=== PATIENT | female | born 1960 | race Caucasian/White ===

== ENCOUNTER → 2017-01-28 | Outpatient (CLI) | payer MEDICAID ==
[~2017-01-28] MED LIST: AMIT50TA3 PO; ASP81TEC PO; CETI10TA17 PO; DARI15TA4 PO; ENAL20TA PO; ESCI20TA2 PO; HCT25T PO; HYDR-2962 PO; MNTL10T PO; MORP15TA8 PO
--- NOTE | 2017-01-28 14:39 | Diagnostic Imaging Report ---
INDICATION: Bilateral leg pain and swelling. COMPARISON: None. TECHNIQUE: The bilateral lower extremity deep venous system was interrogated from the common femoral vein through the popliteal vein. These images were assessed for grayscale appearance, color and spectral Doppler blood flow, compression, and augmentation. FINDINGS: There is no evidence of intraluminal filling defect. Normal compression and augmentation is noted throughout. Soft tissues are unremarkable. IMPRESSION: 1. No sonographic evidence of deep venous thrombosis in the bilateral lower extremities. Dictated by: Dictated on workstation # [id number]
== END ==
LOC: RAD 13:34
PROVIDERS: ATTEND Family Medicine
DX: M79.661 Pain in right lower leg (principal); M79.662 Pain in left lower leg
CPT/HCPCS: 93970

== ENCOUNTER → 2017-03-05 | Outpatient (CLI) | payer MEDICAID ==
[2017-03-05 11:32] LABS: BASOPHILS # (AUTO) 0.1 10^3/uL (0.0-0.1); BASOPHILS % (AUTO) 1 % (0-10); EOSINOPHILS # (AUTO) 0.3 10^3/uL (0.0-0.3); EOSINOPHILS % (AUTO) 5 % (0-10); LYMPHOCYTES # (AUTO) 1.6 X 10^3 (1.0-4.0); LYMPHOCYTES % (AUTO) 26 % (12-44); MEAN CORPUSCULAR HEMOGLOBIN 33 PG (25-34); MEAN CORPUSCULAR HGB CONC 33 G/DL (32-36); MEAN CORPUSCULAR VOLUME 100 FL (80-99); MEAN PLATELET VOLUME 9.1 FL (7.4-10.4); MONOCYTES # (AUTO) 0.5 X 10^3 (0.0-1.0); MONOCYTES % (AUTO) 9 % (0-12); NEUTROPHILS # (AUTO) 3.5 X 10^3 (1.8-7.8); NEUTROPHILS % (AUTO) 59 % (42-75); PLATELET COUNT 335 10^3/uL (130-400); RED BLOOD COUNT 4.88 10^6/uL (4.35-5.85); RED CELL DISTRIBUTION WIDTH 13.7 % (10.0-14.5); WHITE BLOOD COUNT 5.9 10^3/uL (4.3-11.0)
[2017-03-05 11:51] LABS: ALANINE AMINOTRANSFERASE 9 U/L (0-55); ALBUMIN 3.5 G/DL (3.2-4.5); ANION GAP 10 MMOL/L (5-14); ASPARTATE AMINO TRANSFERASE 10 U/L (5-34); BILIRUBIN,TOTAL 0.4 MG/DL (0.1-1.0); BLOOD UREA NITROGEN 6 MG/DL (7-18); BUN/CREATININE RATIO 8; CALCIUM 9.3 MG/DL (8.5-10.1); CARBON DIOXIDE 30 MMOL/L (21-32); CHLORIDE 101 MMOL/L (98-107); CREATININE SERUM 0.78 MG/DL (0.60-1.30); GFR ESTIMATED > 60; GLUCOSE 91 MG/DL (70-105); SODIUM 141 MMOL/L (135-145)
== END ==
LOC: LAB 11:15
PROVIDERS: ATTEND Family Medicine
DX: R63.1 Polydipsia (principal); E87.6 Hypokalemia
CPT/HCPCS: 36415; 80053; 83036; 85025

== ENCOUNTER → 2017-05-10 | Outpatient (CLI) | payer MEDICAID ==
[~2017-05-10] MED LIST changes: +AZIT250T PO
--- NOTE | 2017-05-10 12:48 | Diagnostic Imaging Report ---
PA and lateral views of the chest. INDICATION: Chest wall pain. FINDINGS: There is borderline cardiomegaly and prominent interstitial markings similar to 11/08/2011, exam. Element of vascular congestion could be present although the interstitial thickening seen could also be chronic. No effusion or pneumothorax. The mediastinum and gerardo appear unremarkable. IMPRESSION: Borderline cardiomegaly. There is also interstitial thickening similar to 2012 exam. This could be chronic with possible element of vascular congestion. Correlate clinically. Dictated by: Dictated on workstation # [id number]
== END ==
LOC: RAD 08:54
PROVIDERS: ATTEND Family Medicine
DX: R07.89 Other chest pain (principal)
CPT/HCPCS: 71020

== ENCOUNTER 2017-07-11 15:06 | Emergency (ER) | payer MEDICAID ==
[~2017-07-11] VITALS: Ht 167.6 cm; Wt 116.1 kg
[~2017-07-11 15:06] MED LIST changes: -AZIT250T PO
--- NOTE | 2017-07-11 15:23 | ED General ---
General Chief Complaint: Trauma-Non Activation Stated Complaint: FALL Source of Information: Patient Exam Limitations: No Limitations History of Present Illness Time Seen by Provider: 15:22 Initial Comments To ER with pain beneath and lateral to the right breast. She fell on Tuesday07/06/70 landing on her right side. Since then he's had pain with movement, pain with deep breathing. Timing/Duration: 3-4 Days Severity: Moderate Allergies and Home Medications Allergies Coded Allergies: cefaclor (Verified Allergy, Unknown, 10/20/07) Home Medications Amitriptyline Hcl 50 Mg Tablet, 1 EACH PO HS, (Reported) Aspirin 81 Mg Tabec, 81 MG PO DAILY, (Reported) Cetirizine Hcl 10 Mg Tablet, 10 MG PO DAILY, (Reported) Darifenacin Hydrobromide 15 Mg Tab.sr.24h, 1 EACH PO DAILY, (Reported) Enalapril Maleate 20 Mg Tablet, 20 MG PO DAILY, (Reported) Escitalopram Oxalate 20 Mg Tablet, 1 EACH PO DAILY, (Reported) Hydrochlorothiazide 25 Mg Tablet, 1 EACH PO DAILY, (Reported) Hydrocodone Bit/Acetaminophen 1 Each Tablet, 1 EACH PO TID, (Reported) Montelukast Sodium 10 Mg Tab, 10 MG PO DAILY, (Reported) Morphine Sulfate 15 Mg Tablet, 1 EACH PO DAILY PRN, (Reported) FOR SEVERE PAIN Constitutional: see HPI EENTM: see HPI Respiratory: no symptoms reported Cardiovascular: no symptoms reported Genitourinary: no symptoms reported Musculoskeletal: no symptoms reported Skin: no symptoms reported Psychiatric/Neurological: No Symptoms Reported Past Usifqll-Ahvwyl-Zzebdl Hx Patient Social History Recent Foreign Travel: No Contact w/Someone Who Travel: No Immunizations Up To Date Date of Influenza Vaccine: Aug 12, 2010 Reproductive System Hx Reproductive Disorders: Yes Physical Exam Vital Signs Vital Sign - Last 12Hours 07/11/17 15:15 Temp 98.1 Pulse 72 Resp 18 B/P (MAP) 135/81 Pulse Ox 89 O2 Delivery Room Air Capillary Refill : General Appearance: No Apparent Distress, WD/WN Eyes: Bilateral Eye Normal Inspection, Bilateral Eye PERRL, Bilateral Eye EOMI HEENT: PERRL/EOMI, TMs Normal Neck: Full Range of Motion, Normal Inspection Respiratory: Normal Breath Sounds, No Accessory Muscle Use, No Respiratory Distress Cardiovascular: Regular Rate, Rhythm, No Murmur, Normal Peripheral Pulses Gastrointestinal: Non Tender, Soft Extremity: Normal Capillary Refill, Normal Inspection Neurologic/Psychiatric: Alert, Oriented x3, No Motor/Sensory Deficits Skin: Normal Color, Warm/Dry, Other (minor abrasion to the right lateral chest wall) Progress/Results/Core Measures Results/Orders Lab Results Laboratory Tests Test 07/11/17 15:20 Range/Units White Blood Count 8.7 4.3-11.0 10^3/uL Red Blood Count 4.72 4.35-5.85 10^6/uL Hemoglobin 15.5 11.5-16.0 G/DL Hematocrit 46 35-52 % Mean Corpuscular Volume 98 80-99 FL Mean Corpuscular Hemoglobin 33 25-34 PG Mean Corpuscular Hemoglobin Concent 34 32-36 G/DL Red Cell Distribution Width 15.0 H 10.0-14.5 % Platelet Count 321 130-400 10^3/uL Mean Platelet Volume 9.3 7.4-10.4 FL Neutrophils (%) (Auto) 61 42-75 % Lymphocytes (%) (Auto) 24 12-44 % Monocytes (%) (Auto) 11 0-12 % Eosinophils (%) (Auto) 4 0-10 % Basophils (%) (Auto) 1 0-10 % Neutrophils # (Auto) 5.3 1.8-7.8 X 10^3 Lymphocytes # (Auto) 2.1 1.0-4.0 X 10^3 Monocytes # (Auto) 1.0 0.0-1.0 X 10^3 Eosinophils # (Auto) 0.4 H 0.0-0.3 10^3/uL Basophils # (Auto) 0.1 0.0-0.1 10^3/uL Sodium Level 139 135-145 MMOL/L Potassium Level 3.2 L 3.6-5.0 MMOL/L Chloride Level 99 98-107 MMOL/L Carbon Dioxide Level 30 21-32 MMOL/L Anion Gap 10 5-14 MMOL/L Blood Urea Nitrogen 6 L 7-18 MG/DL Creatinine 0.79 0.60-1.30 MG/DL Estimat Glomerular Filtration Rate > 60 BUN/Creatinine Ratio 8 Glucose Level 86 70-105 MG/DL Calcium Level 8.9 8.5-10.1 MG/DL Total Bilirubin 0.3 0.1-1.0 MG/DL Aspartate Amino Transf (AST/SGOT) 8 5-34 U/L Alanine Aminotransferase (ALT/SGPT) 7 0-55 U/L Alkaline Phosphatase 92 40-136 U/L Total Protein 7.0 6.4-8.2 GM/DL Albumin 3.4 3.2-4.5 GM/DL My Orders Orders - SUSAN TANG APRN Cbc With Automated Diff (07/11/17 15:20) Comprehensive Metabolic Panel (07/11/17 15:20) Saline Lock/Iv-Start (07/11/17 15:20) Ct Chest/Abdomen W (07/11/17 15:20) Iohexol Injection (Omnipaque 350 Mg/Ml 1 (07/11/17 15:30) Ns (Ivpb) (Sodium Chloride 0.9% Ivpb Bag (07/11/17 15:30) Us Gallbladder [id number] (07/11/17 16:05) Ketorolac Injection (Toradol Injection) (07/11/17 16:30) Medications Given in ED Current Medications Medications Dose Ordered Sig/Evelin Route Start Time Stop Time Status Last Admin Dose Admin Iohexol 100 ml ONCE ONCE IV 07/11/17 15:30 07/11/17 15:31 DC 07/11/17 15:54 100 ML Ketorolac Tromethamine 30 mg ONCE ONCE IVP 07/11/17 16:30 07/11/17 16:31 DC 07/11/17 16:30 30 MG Sodium Chloride 100 ml ONCE ONCE IV 07/11/17 15:30 07/11/17 15:31 DC 07/11/17 15:54 100 ML Vital Signs/I&O Vital Sign - Last 12Hours 07/11/17 15:15 Temp 98.1 Pulse 72 Resp 18 B/P (MAP) 135/81 Pulse Ox 89 O2 Delivery Room Air Diagnostic Imaging Diagonstic Imaging: CT, Ultrasound Comments NAME: [facility] REC#: [id number] PT STATUS: REG ER : 1960 PHYSICIAN: SUSAN TANG APRN ADMIT DATE: 07/11/17/ER Draft Date of Exam:07/11/17 US GALLBLADDER [id number] PROCEDURE: US Gallbladder. TECHNIQUE: Multiple Real-time grayscale images were obtained over the right upper quadrant in various projections. INDICATION: Abnormal CT scan. FINDINGS: The liver is elongated measuring 21 cm in length. There is an approximately 2 cm calculus in the gallbladder neck with a similar sized stone also seen in the lumen of the fundus. No gallbladder wall thickening or pericholecystic fluid is identified. There is no evidence of biliary ductal dilatation in the liver. The common bile duct is prominent at 0.8 cm in diameter. The pancreas is largely obscured by overlying bowel. No right renal abnormality is identified and no free fluid is seen. IMPRESSION: Multiple gallstones with a 2 cm stone in the gallbladder neck. There is no evidence of wall thickness to indicate significant inflammation at this time although clinical correlation is recommended. If indicated, a Nuclear Medicine hepatobiliary scan may be of value to exclude cystic duct obstruction. Dictated on workstation # [id number] Dict: 07/11/17 1638 Trans: 07/11/17 1644 [id number] Interpreted by: NICKOLAS HARDEN MD Electronically signed by: Departure Communication (Admissions) Progress Notes I did discuss the case with Dr. Toth, he will follow up with her in the office. I Impression Impression: Primary Impression: Chest wall contusion Additional Impression: Cholelithiasis Disposition: 01 HOME, SELF-CARE Condition: Stable Departure-Patient Inst. Decision time for Depature: 16:22 Referrals: SERGEY TOTH BRETT D DO JENKINS, XAVIER M MD KIDO, TAKAAKI MD SEGLIE, FLOYD R MD (PCP/Family) Primary Care Physician Patient Instructions: CHEST CONTUSION, Gallstones Add. Discharge Instructions: 1. Antibiotic as directed 2. Follow-up with your doctor next week 3. Return to ER for any worsening 4. Call one of the surgeons listed make an appointment to be seen All discharge instructions reviewed with patient and/or family. Voiced understanding. Scripts Azithromycin (Zithromax) 250 Mg Tablet 250 MG PO UD, #6 TAB TAKE 2 TABLETS TODAY, THEN TAKE 1 TABLET DAILY FOR 4 MORE DAYS Prov: SUSAN TANG PROCUREMENT SERVICES MANAGER 07/11/17 SUSAN TANG PROCUREMENT SERVICES MANAGER Jul 11, 2017 15:23
[2017-07-11 15:25] LABS: BASOPHILS # (AUTO) 0.1 10^3/uL (0.0-0.1); BASOPHILS % (AUTO) 1 % (0-10); EOSINOPHILS # (AUTO) 0.4 10^3/uL (0.0-0.3); EOSINOPHILS % (AUTO) 4 % (0-10); LYMPHOCYTES # (AUTO) 2.1 X 10^3 (1.0-4.0); LYMPHOCYTES % (AUTO) 24 % (12-44); MEAN CORPUSCULAR HEMOGLOBIN 33 PG (25-34); MEAN CORPUSCULAR HGB CONC 34 G/DL (32-36); MEAN CORPUSCULAR VOLUME 98 FL (80-99); MEAN PLATELET VOLUME 9.3 FL (7.4-10.4); MONOCYTES % (AUTO) 11 % (0-12); NEUTROPHILS # (AUTO) 5.3 X 10^3 (1.8-7.8); NEUTROPHILS % (AUTO) 61 % (42-75); PLATELET COUNT 321 10^3/uL (130-400); RED BLOOD COUNT 4.72 10^6/uL (4.35-5.85); WHITE BLOOD COUNT 8.7 10^3/uL (4.3-11.0)
[2017-07-11] MEDS ORDERED: NS 100 ML (IVPB) BAG IV ONE (15:30)
[2017-07-11] MEDS ORDERED: IOHEXOL 350 MG/ML 100 ML (OMNIPAQUE 350) VIAL IV ONE (15:30)
[2017-07-11 15:41] LABS: ALANINE AMINOTRANSFERASE 7 U/L (0-55); ALBUMIN 3.4 GM/DL (3.2-4.5); ANION GAP 10 MMOL/L (5-14); ASPARTATE AMINO TRANSFERASE 8 U/L (5-34); BILIRUBIN,TOTAL 0.3 MG/DL (0.1-1.0); BLOOD UREA NITROGEN 6 MG/DL (7-18); BUN/CREATININE RATIO 8; CALCIUM 8.9 MG/DL (8.5-10.1); CARBON DIOXIDE 30 MMOL/L (21-32); CHLORIDE 99 MMOL/L (98-107); CREATININE SERUM 0.79 MG/DL (0.60-1.30); GFR ESTIMATED > 60; GLUCOSE 86 MG/DL (70-105); POTASSIUM 3.2 MMOL/L (3.6-5.0); SODIUM 139 MMOL/L (135-145)
[2017-07-11] MEDS ORDERED: KETOROLAC 30 MG/ML VIAL IVP ONE (16:30)
--- NOTE | 2017-07-11 16:45 | Diagnostic Imaging Report ---
PROCEDURE: US Gallbladder. TECHNIQUE: Multiple Real-time grayscale images were obtained over the right upper quadrant in various projections. INDICATION: Abnormal CT scan. FINDINGS: The liver is elongated measuring 21 cm in length. There is an approximately 2 cm calculus in the gallbladder neck with a similar sized stone also seen in the lumen of the fundus. No gallbladder wall thickening or pericholecystic fluid is identified. There is no evidence of biliary ductal dilatation in the liver. The common bile duct is prominent at 0.8 cm in diameter. The pancreas is largely obscured by overlying bowel. No right renal abnormality is identified and no free fluid is seen. IMPRESSION: Multiple gallstones with a 2 cm stone in the gallbladder neck. There is no evidence of wall thickness to indicate significant inflammation at this time although clinical correlation is recommended. If indicated, a Nuclear Medicine hepatobiliary scan may be of value to exclude cystic duct obstruction. Dictated by: Dictated on workstation # [id number]
[2017-07-11] MEDS ORDERED: AZIT250T PO (17:12)
--- NOTE | 2017-07-11 17:30 | Diagnostic Imaging Report ---
PROCEDURE: CT chest and abdomen with contrast. TECHNIQUE: Multiple contiguous axial images were obtained through the chest and abdomen after the administration of intravenous contrast. INDICATION: Fall. 100 mL of Omnipaque 350 was administered intravenously. FINDINGS: CT CHEST: There is a very small right pleural effusion. There are groundglass opacities in the lungs, more in the right lung and mild thickening of the septa which may relate to an element of vascular congestion. There is no significant contusion or consolidation. No lung mass or suspicious nodule. There is background mild emphysema changes. In the mediastinum, there are mildly enlarged lymph nodes measuring up to 1.3 cm in the infracarinal region. The is a 1.2 cm lymph node in the right hilum and a 1.7 cm lymph node in the right paratracheal region. A 1.1 cm lymph node in the aortopulmonary window is seen. The heart size is normal. No pericardial effusion. The thoracic aorta is normal in caliber. No axillary lymphadenopathy is seen. The osseous structures demonstrate bridging syndesmophytes in the thoracic spine. CT ABDOMEN: The liver is prominent in size with no focal lesion seen. The spleen appears unremarkable. The pancreas appears unremarkable. The adrenal glands appear unremarkable. There is suggestion of calcified gallstone near the gallbladder neck. The gallbladder is distended with no inflammatory changes or wall thickening seen. Better evaluation with ultrasound is recommended. There is a 3.3 cm cystic lesion in the upper pole of the left kidney. The kidneys have symmetric enhancement and contrast excretion otherwise. The abdominal size is normal in caliber. No retroperitoneal hemorrhage or solid organ injury evident. The osseous structures demonstrate chronic appearing compression fracture of L1 vertebral body. Impression: CT chest: 1. Pulmonary findings are suggestive of vascular congestion more prominent on the right side with a very small right pleural effusion. Atypical/interstitial pneumonia could be considered. 2. Mild mediastinal and hilar lymphadenopathy. CT abdomen: Findings suggestive of gallbladder stones. The gallbladder is mildly distended with no inflammatory changes seen however. Better evaluation with ultrasound is recommended. Dictated by: Dictated on workstation # [id number]
[2017-07-11 17:49] VITALS: BP 135/81
== END 2017-07-11 17:49 | disposition home or self-care (01) ==
LOC: EDUNIT# 15:06 → ER 15:07
DX: S20.211A Contusion of right front wall of thorax, initial encounter (principal); K80.20 Calculus of gallbladder without cholecystitis without obstruction; Z79.82 Long term (current) use of aspirin; W17.89XA Other fall from one level to another, initial encounter
CPT/HCPCS: 36415; 71260; 74160; 76705; 80053; 83880; 85025; 99282

== ENCOUNTER → 2018-05-16 | Outpatient (CLI) | payer MEDICAID ==
[~2018-05-16] MED LIST changes: +AZIT250T PO
[2018-05-16 08:15] LABS: BASOPHILS % (AUTO) 1 % (0-10); EOSINOPHILS # (AUTO) 0.4 10^3/uL (0.0-0.3); EOSINOPHILS % (AUTO) 6 % (0-10); HEMATOCRIT 50 % (35-52); HEMOGLOBIN 16.6 G/DL (11.5-16.0); LYMPHOCYTES # (AUTO) 1.3 X 10^3 (1.0-4.0); LYMPHOCYTES % (AUTO) 19 % (12-44); MEAN CORPUSCULAR HEMOGLOBIN 33 PG (25-34); MEAN CORPUSCULAR HGB CONC 33 G/DL (32-36); MEAN CORPUSCULAR VOLUME 98 FL (80-99); MEAN PLATELET VOLUME 9.7 FL (7.4-10.4); MONOCYTES # (AUTO) 0.7 X 10^3 (0.0-1.0); MONOCYTES % (AUTO) 10 % (0-12); NEUTROPHILS # (AUTO) 4.6 X 10^3 (1.8-7.8); NEUTROPHILS % (AUTO) 66 % (42-75); PLATELET COUNT 266 10^3/uL (130-400); RED BLOOD COUNT 5.08 10^6/uL (4.35-5.85); RED CELL DISTRIBUTION WIDTH 14.9 % (10.0-14.5); WHITE BLOOD COUNT 6.9 10^3/uL (4.3-11.0)
[2018-05-16 08:32] LABS: ALANINE AMINOTRANSFERASE < 6 U/L (0-55); ALBUMIN 3.5 GM/DL (3.2-4.5); ALKALINE PHOSPHATASE 83 U/L (40-136); BILIRUBIN,TOTAL 0.4 MG/DL (0.1-1.0); BUN/CREATININE RATIO 10; CALCIUM 9.2 MG/DL (8.5-10.1); CARBON DIOXIDE 29 MMOL/L (21-32); CHLORIDE 103 MMOL/L (98-107); CREATININE SERUM 0.82 MG/DL (0.60-1.30); GFR ESTIMATED > 60; GLUCOSE 95 MG/DL (70-105); POTASSIUM 3.9 MMOL/L (3.6-5.0); SODIUM 141 MMOL/L (135-145); TOTAL PROTEIN 6.8 GM/DL (6.4-8.2)
== END ==
LOC: LAB 07:56
PROVIDERS: ATTEND Nurse Practitioner Family
DX: J20.8 Acute bronchitis due to other specified organisms (principal)
CPT/HCPCS: 36415; 80053; 85025

== ENCOUNTER → 2018-06-06 | Outpatient (CLI) | payer MEDICAID ==
--- NOTE | 2018-06-06 16:13 | Diagnostic Imaging Report ---
INDICATION: Chest wall pain, productive cough for several days. TECHNIQUE: Two view chest 1:57 PM CORRELATION STUDY: 05/10/2017 FINDINGS: Heart size is enlarged. Increasing bilateral perihilar infiltrates, right greater than left. There is the suggestion of some fullness in the right hilum. Mildly prominent interstitial markings noted more peripherally. No focal lobar consolidation. Bilateral pleural effusion and blunting of the costophrenic angles. Degenerative changes about the thoracic spine. Mildly compressed lower thoracic and lumbar vertebral bodies. IMPRESSION: 1. Bilateral perihilar infiltrates, right greater than left, adversely changed from prior study. Some fullness of the hilar structures is present. Followup imaging until resolution is recommended. Dictated by: Dictated on workstation # [id number]
== END ==
LOC: RAD 13:24
PROVIDERS: ATTEND Family Medicine
DX: R91.8 Other nonspecific abnormal finding of lung field (principal)
CPT/HCPCS: 71046

== ENCOUNTER 2018-09-04 14:36 | Observation (INO) | payer MEDICAID ==
[~2018-09-04] VITALS: Ht 167.6 cm; Wt 116.6 kg
[2018-09-04] MEDS ORDERED: NS IV 1000 ML 1,000 ML IV SCH (14:44)
[2018-09-04] MEDS ORDERED: RT-ALBUTEROL/IPRATROPIUM 3 ML (DUONEB) VIAL INH ONE (14:45)
--- NOTE | 2018-09-04 14:52 | ED GI ---
General Stated Complaint: N/V/D Source of Information: Patient, EMS Exam Limitations: No Limitations History of Present Illness Date Seen by Provider: Sep 04, 2018 Time Seen by Provider: 14:37 Initial Comments Patient presents to ER by EMS with chief complaint for the past 3 days she's had nausea vomiting diarrhea. She's not been aorta seen anybody she knows of viral bug in the past. She said what concerned her today she started having bloody stool. She's had a temperature of 99 but no fevers. She usually uses hydrocodone for her chronic back pain and leg pain but has not been able to take it today because the nausea is so bad. She's not having much abdominal pain. She says is diffuse in all over. No chest pain. She does have some shortness of breath and admits to using oxygen 2-3 L by nasal cannula at night and as needed. She almost fell a couple days ago and bruised her right ankle she 's not worried about that. She denies a history of colonoscopy, IBS, inflammatory bowel disease or other bowel problems. She denies a history of hemorrhoids. She is not on blood thinners. Allergies and Home Medications Allergies Coded Allergies: cefaclor (Verified Allergy, Unknown, 10/20/07) Home Medications Amitriptyline Hcl 50 Mg Tablet, 1 EACH PO HS, (Reported) Aspirin 81 Mg Tabec, 81 MG PO DAILY, (Reported) Azithromycin 250 Mg Tablet, 250 MG PO UD TAKE 2 TABLETS TODAY, THEN TAKE 1 TABLET DAILY FOR 4 MORE DAYS Prescribed by: SUSAN TANG on 07/11/17 1712 Cetirizine Hcl 10 Mg Tablet, 10 MG PO DAILY, (Reported) Darifenacin Hydrobromide 15 Mg Tab.sr.24h, 1 EACH PO DAILY, (Reported) Enalapril Maleate 20 Mg Tablet, 20 MG PO DAILY, (Reported) Escitalopram Oxalate 20 Mg Tablet, 1 EACH PO DAILY, (Reported) Hydrochlorothiazide 25 Mg Tablet, 1 EACH PO DAILY, (Reported) Hydrocodone Bit/Acetaminophen 1 Each Tablet, 1 EACH PO TID, (Reported) Montelukast Sodium 10 Mg Tab, 10 MG PO DAILY, (Reported) Morphine Sulfate 15 Mg Tablet, 1 EACH PO DAILY PRN, (Reported) FOR SEVERE PAIN Patient Home Medication List Home Medication List Reviewed: Yes Review of Systems Review of Systems Constitutional: No chills, No diaphoresis EENTM: No Blurred Vision, No Double Vision Respiratory: Denies Cough, Denies Shortness of Air Cardiovascular: Denies Chest Pain, Denies Edema Gastrointestinal: Denies Abdomen Distended, Denies Abdominal Pain; Blood Streaked Stools, Diarrhea, Nausea, Rectal Bleeding, Vomiting Genitourinary: Denies Burning, Denies Discharge Musculoskeletal: back pain (chronic); No joint pain Past Lwzsmtm-Jhyhao-Obcvrq Hx Patient Social History Alcohol Use: Denies Use Recreational Drug Use: No Smoking Status: Current Everyday Smoker Type Used: Cigarettes Recent Foreign Travel: No Contact w/Someone Who Travel: No Recent Hopitalizations: Yes (SEE LIST) Immunizations Up To Date Date of Pneumonia Vaccine: Aug 12, 2010 Date of Influenza Vaccine: Aug 12, 2010 Past Medical History Surgeries: Yes (SEE PREVIOUS ASSESSMENT) Respiratory: Yes Cardiac: Yes Neurological: Yes Reproductive Disorders: Yes Gastrointestinal: No Musculoskeletal: Yes (DJD) Endocrine: No Psychosocial: Yes Blood Disorders: No Physical Exam Vital Signs Vital Signs - First Documented 09/04/18 14:39 Temp 99.7 Pulse 76 Resp 18 B/P (MAP) 117/82 (94) Pulse Ox 96 O2 Delivery Nasal Cannula O2 Flow Rate 4.00 Capillary Refill : Height/Weight/BMI Height: 5'6.00" Weight: 256lbs. oz. 116.946859mf; BMI Method:Stated General Appearance: mild distress, obese HEENT: PERRL/EOMI, pharynx normal (oropharynx is dry) Neck: non-tender, supple, normal inspection Respiratory: chest non-tender, no respiratory distress, no accessory muscle use , rhonchi, wheezing (expiratory), expiration (prolonged) Cardiovascular: normal peripheral pulses, regular rate, rhythm, no edema Peripheral Pulses: 2+ Radial Pulses (R), 2+ Radial Pulses (L) Gastrointestinal: normal bowel sounds, non tender, soft Extremities: normal inspection, normal capillary refill Neurologic/Psychiatric: alert, normal mood/affect, oriented x 3 Skin: normal color, warm/dry Progress/Results/Core Measures Results/Orders Lab Results Laboratory Tests Test 09/04/18 14:55 09/04/18 17:28 Range/Units White Blood Count 9.7 4.3-11.0 10^3/uL Red Blood Count 5.46 4.35-5.85 10^6/uL Hemoglobin 16.7 H 11.5-16.0 G/DL Hematocrit 52 35-52 % Mean Corpuscular Volume 96 80-99 FL Mean Corpuscular Hemoglobin 31 25-34 PG Mean Corpuscular Hemoglobin Concent 32 32-36 G/DL Red Cell Distribution Width 15.9 H 10.0-14.5 % Platelet Count 282 130-400 10^3/uL Mean Platelet Volume 9.7 7.4-10.4 FL Neutrophils (%) (Auto) 73 42-75 % Lymphocytes (%) (Auto) 15 12-44 % Monocytes (%) (Auto) 11 0-12 % Eosinophils (%) (Auto) 1 0-10 % Basophils (%) (Auto) 1 0-10 % Neutrophils # (Auto) 7.0 1.8-7.8 X 10^3 Lymphocytes # (Auto) 1.4 1.0-4.0 X 10^3 Monocytes # (Auto) 1.1 H 0.0-1.0 X 10^3 Eosinophils # (Auto) 0.1 0.0-0.3 10^3/uL Basophils # (Auto) 0.1 0.0-0.1 10^3/uL Prothrombin Time 14.0 12.2-14.7 SEC INR Comment 1.1 0.8-1.4 Activated Partial Thromboplast Time 31 24-35 SEC Sodium Level 135 135-145 MMOL/L Potassium Level 3.2 L 3.6-5.0 MMOL/L Chloride Level 93 L 98-107 MMOL/L Carbon Dioxide Level 31 21-32 MMOL/L Anion Gap 11 5-14 MMOL/L Blood Urea Nitrogen 13 7-18 MG/DL Creatinine 1.08 0.60-1.30 MG/DL Estimat Glomerular Filtration Rate 52 BUN/Creatinine Ratio 12 Glucose Level 133 H 70-105 MG/DL Calcium Level 9.3 8.5-10.1 MG/DL Corrected Calcium 9.6 8.5-10.1 MG/DL Magnesium Level 1.9 1.8-2.4 MG/DL Total Bilirubin 0.9 0.1-1.0 MG/DL Aspartate Amino Transf (AST/SGOT) 11 5-34 U/L Alanine Aminotransferase (ALT/SGPT) 12 0-55 U/L Alkaline Phosphatase 86 40-136 U/L Total Protein 7.3 6.4-8.2 GM/DL Albumin 3.6 3.2-4.5 GM/DL Urine Color YELLOW Urine Clarity SLIGHTLY CLOUDY Urine pH 7 5-9 Urine Specific [employer] 1.005 L 1.016-1.022 Urine Protein 3+ H NEGATIVE Urine Glucose (UA) NEGATIVE NEGATIVE Urine Ketones 1+ H NEGATIVE Urine Nitrite POSITIVE H NEGATIVE Urine Bilirubin NEGATIVE NEGATIVE Urine Urobilinogen 4 H NORMAL MG/DL Urine Leukocyte Esterase 3+ H NEGATIVE Urine RBC (Auto) 3+ H NEGATIVE Urine RBC 0-2 /HPF Urine WBC 50-100 H /HPF Urine Squamous Epithelial Cells 10-25 H /HPF Urine Crystals NONE /LPF Urine Bacteria LARGE H /HPF Urine Casts NONE /LPF Urine Mucus NEGATIVE /LPF Urine Culture Indicated YES Urine Opiates Screen NEGATIVE NEGATIVE Urine Oxycodone Screen NEGATIVE NEGATIVE Urine Methadone Screen NEGATIVE NEGATIVE Urine Propoxyphene Screen NEGATIVE NEGATIVE Urine Barbiturates Screen NEGATIVE NEGATIVE Ur Tricyclic Antidepressants Screen NEGATIVE NEGATIVE Urine Phencyclidine Screen NEGATIVE NEGATIVE Urine Amphetamines Screen NEGATIVE NEGATIVE Urine Methamphetamines Screen NEGATIVE NEGATIVE Urine Benzodiazepines Screen NEGATIVE NEGATIVE Urine Cocaine Screen NEGATIVE NEGATIVE Urine Cannabinoids Screen NEGATIVE NEGATIVE My Orders Orders - CONCEPCIÓN SIERRA Cbc With Automated Diff (09/04/18 14:44) Comprehensive Metabolic Panel (09/04/18 14:44) Drug Screen Stat (Urine) (09/04/18 14:44) Magnesium (09/04/18 14:44) Protime With Inr (09/04/18 14:44) Partial Thromboplastin Time (09/04/18 14:44) Ua Culture If Indicated (09/04/18 14:44) Chest 1 View, Ap/Pa Only (09/04/18 14:44) Albuterol/Ipra Inhalation Soln (Duoneb I (09/04/18 14:45) Saline Lock/Iv-Start (09/04/18 14:44) Ns Iv 1000 Ml (Sodium Chloride 0.9%) (09/04/18 14:44) Svn Small Volume Nebulizer (09/04/18 14:44) Potassium Cl 10meq/50ml Ivpb (Kcl 10 Meq (09/04/18 16:30) Occult Blood Stool (09/04/18 17:30) Urine Culture (09/04/18 17:28) Ns Iv 1000 Ml (Sodium Chloride 0.9%) (09/04/18 17:30) Medications Given in ED Current Medications Medications Dose Ordered Sig/Evelin Route Start Time Stop Time Status Last Admin Dose Admin Albuterol/ Ipratropium 3 ml ONCE ONCE INH 09/04/18 14:45 09/04/18 14:48 DC 09/04/18 15:30 3 ML Potassium Chloride 50 ml @ 50 mls/hr ONCE ONCE IV 09/04/18 16:30 09/04/18 17:29 DC 09/04/18 17:25 50 MLS/HR Sodium Chloride 1,000 ml @ 0 mls/hr Q0M ONCE IV 09/04/18 17:30 09/04/18 18:26 DC 09/04/18 17:30 1,000 MLS/HR Vital Signs/I&O 09/04/18 09/04/18 14:39 15:30 Temp 99.7 Pulse 76 Resp 18 B/P (MAP) 117/82 (94) Pulse Ox 96 97 O2 Delivery Nasal Cannula Nasal Cannula O2 Flow Rate 4.00 6.00 Progress Progress Note : Time: 19:02 Progress Note Patient is a history of COPD she been coughing she does not have an elevated white count but she does have some infiltrates seen over her lung bases bilateral. No fever but this combined with her nitrite positive apparent UTI as well as her nausea vomiting which has improved after IV fluid boluses and antibiotics we would offer her observation stay and she has accepted. Departure Communication (Admissions) Time/Spoke to Admitting Phy: 19:07 Discussed case lab imaging findings with Dr. Latham and he agrees with observation, Rocephin, azithromycin and IV fluids and symptom medics treatment of her nausea vomiting. Impression Primary Impression: Urinary tract infection Qualified Codes: N30.01 - Acute cystitis with hematuria Additional Impressions: Pneumonia Qualified Codes: J18.1 - Lobar pneumonia, unspecified organism Gastroenteritis and colitis, viral History of COPD Hypoxia Disposition: 09 ADMITTED INPATIENT Condition: Stable Admissions Decision to Admit Reason: Admit from ER (General) Decision to Admit/Date: Sep 04, 2018 Time/Decision to Admit Time: 18:58 Departure-Patient Inst. Referrals: PRAVEENA PRIEST MD (PCP/Family) Primary Care Physician Copy Copies To 1: PRAVEENA PRIEST MD, TITUS J Sep 04, 2018 14:52
[2018-09-04 15:06] LABS: BASOPHILS # (AUTO) 0.1 10^3/uL (0.0-0.1); BASOPHILS % (AUTO) 1 % (0-10); EOSINOPHILS # (AUTO) 0.1 10^3/uL (0.0-0.3); EOSINOPHILS % (AUTO) 1 % (0-10); HEMATOCRIT 52 % (35-52); HEMOGLOBIN 16.7 G/DL (11.5-16.0); LYMPHOCYTES # (AUTO) 1.4 X 10^3 (1.0-4.0); LYMPHOCYTES % (AUTO) 15 % (12-44); MEAN CORPUSCULAR HEMOGLOBIN 31 PG (25-34); MEAN CORPUSCULAR HGB CONC 32 G/DL (32-36); MEAN CORPUSCULAR VOLUME 96 FL (80-99); MEAN PLATELET VOLUME 9.7 FL (7.4-10.4); MONOCYTES # (AUTO) 1.1 X 10^3 (0.0-1.0); MONOCYTES % (AUTO) 11 % (0-12); NEUTROPHILS % (AUTO) 73 % (42-75); PLATELET COUNT 282 10^3/uL (130-400); RED BLOOD COUNT 5.46 10^6/uL (4.35-5.85); RED CELL DISTRIBUTION WIDTH 15.9 % (10.0-14.5); WHITE BLOOD COUNT 9.7 10^3/uL (4.3-11.0)
[2018-09-04 15:17] LABS: INR 1.1 (0.8-1.4)
[2018-09-04 15:25] LABS: ALBUMIN 3.6 GM/DL (3.2-4.5); BILIRUBIN,TOTAL 0.9 MG/DL (0.1-1.0); CALCIUM 9.3 MG/DL (8.5-10.1); CREATININE SERUM 1.08 MG/DL (0.60-1.30); MAGNESIUM 1.9 MG/DL (1.8-2.4); POTASSIUM 3.2 MMOL/L (3.6-5.0); TOTAL PROTEIN 7.3 GM/DL (6.4-8.2)
--- NOTE | 2018-09-04 15:37 | Diagnostic Imaging Report ---
INDICATION: Nausea, vomiting, diarrhea, and shortness of breath. COMPARISON: 06/06/2018. FINDINGS: There is cardiomegaly. There is moderate central pulmonary venous congestion. There are patchy bibasilar infiltrates. There is no pleural effusion or pneumothorax. The mediastinum is unremarkable. IMPRESSION: Cardiomegaly and moderately severe central pulmonary venous congestion with patchy bibasilar infiltrate. Dictated by: Dictated on workstation # [id number]
[2018-09-04] MEDS ORDERED: POTASSIUM CL 10MEQ/50ML IVPB 50 ML IV ONE (16:30)
[2018-09-04] MEDS ORDERED: NS IV 1000 ML 1,000 ML IV ONE (17:30)
[2018-09-04 17:33] LABS: BILIRUBIN,URINE NEGATIVE (NEGATIVE); CLARITY,URINE SLIGHTLY CLOUDY; COLOR,URINE YELLOW; GLUCOSE, URINE (UA) NEGATIVE (NEGATIVE); KETONES,URINE 1+ (NEGATIVE); LEUKOCYTE ESTERASE ,URINE 3+ (NEGATIVE); NITRITE,URINE POSITIVE (NEGATIVE); PH,URINE 7 (5-9); PROTEIN,URINE 3+ (NEGATIVE); UROBILINOGEN,URINE 4 MG/DL (NORMAL)
[2018-09-04 17:42] LABS: BACTERIA,URINE LARGE /HPF; RBC,URINE 0-2 /HPF; WBC,URINE 50-100 /HPF
[2018-09-04 17:49] LABS: AMPHETAMINE SCREEN, URINE NEGATIVE (NEGATIVE); BARBITURATE SCREEN URINE NEGATIVE (NEGATIVE); BENZODIAZEPINES SCREEN URINE NEGATIVE (NEGATIVE); CANNABINOID SCREEN, URINE NEGATIVE (NEGATIVE); COCAINE SCREEN URINE NEGATIVE (NEGATIVE); METHADONE STAT NEGATIVE (NEGATIVE); METHAMPHETAMINE SCREEN URINE S NEGATIVE (NEGATIVE); OPIATE SCREEN URINE NEGATIVE (NEGATIVE); OXYCODONE STAT NEGATIVE (NEGATIVE); PROPOXYPHENE STAT NEGATIVE (NEGATIVE); TRICYCLIC ANTIDEPRESSANTS SCRE NEGATIVE (NEGATIVE)
[2018-09-04] MEDS ORDERED: LEVOFLOXACIN 500 MG/100 ML IV 100 ML ONE (19:52)
[2018-09-04] MEDS ORDERED: LEVOFLOXACIN 500 MG/100 ML IV 100 ML IV ONE (20:00)
[2018-09-04 20:14] VITALS: BP 126/71
[2018-09-04] MEDS ORDERED: ONDANSETRON 4 MG/2 ML (SDV) Z0FRAN IV PRN (20:30)
[2018-09-04] MEDS ORDERED: CATHETER FLUSH 10 ML SYR IV PRN (20:30)
[2018-09-04] MEDS ORDERED: fentaNYL INJECTION 100 MCG/2 ML AMP IV PRN (20:30)
[2018-09-04] MEDS ORDERED: PROMETHAZINE 25 MG (PHENERGAN) SUPP PR PRN (20:30)
[2018-09-04] MEDS ORDERED: HYDROcodone/APAP 5 MG/325 MG (LORTAB) TAB PO PRN (20:30)
[2018-09-04] MEDS: NS W/KCL 40 MEQ/L 1,000 ML IV SCH (21:17)
[2018-09-04] MEDS ORDERED: RT-ALBUTEROL/IPRATROPIUM 3 ML (DUONEB) VIAL INH PRN (22:45)
[2018-09-05] VITALS: BP 128/80
[2018-09-05] MEDS: RT-ALBUTEROL/IPRATROPIUM 3 ML (DUONEB) VIAL INH SCH ×6 (01:20→21:32)
[2018-09-05] MEDS: NS W/KCL 40 MEQ/L 1,000 ML IV SCH ×3 (03:06→21:15)
[2018-09-05 04:00] VITALS: BP 101/52
[2018-09-05 06:02] LABS: BASOPHILS % (AUTO) 0 % (0-10); EOSINOPHILS # (AUTO) 0.2 10^3/uL (0.0-0.3); EOSINOPHILS % (AUTO) 2 % (0-10); HEMATOCRIT 49 % (35-52); HEMOGLOBIN 15.1 G/DL (11.5-16.0); LYMPHOCYTES # (AUTO) 1.5 X 10^3 (1.0-4.0); LYMPHOCYTES % (AUTO) 18 % (12-44); MEAN CORPUSCULAR HEMOGLOBIN 30 PG (25-34); MEAN CORPUSCULAR HGB CONC 31 G/DL (32-36); MEAN CORPUSCULAR VOLUME 98 FL (80-99); MEAN PLATELET VOLUME 10.1 FL (7.4-10.4); MONOCYTES % (AUTO) 11 % (0-12); NEUTROPHILS # (AUTO) 5.8 X 10^3 (1.8-7.8); NEUTROPHILS % (AUTO) 68 % (42-75); PLATELET COUNT 209 10^3/uL (130-400); RED BLOOD COUNT 4.97 10^6/uL (4.35-5.85); RED CELL DISTRIBUTION WIDTH 15.9 % (10.0-14.5); WHITE BLOOD COUNT 8.5 10^3/uL (4.3-11.0)
[2018-09-05 06:04] LABS: SMEAR SCAN COMMENT YES
[2018-09-05 06:24] LABS: BUN/CREATININE RATIO 11; CALCIUM 8.7 MG/DL (8.5-10.1); CARBON DIOXIDE 26 MMOL/L (21-32); CHLORIDE 103 MMOL/L (98-107); CREATININE SERUM 0.75 MG/DL (0.60-1.30); GFR ESTIMATED > 60; GLUCOSE 95 MG/DL (70-105); POTASSIUM 3.7 MMOL/L (3.6-5.0); SODIUM 139 MMOL/L (135-145)
[2018-09-05] MEDS ORDERED: FLU QUADRIvalent (5+ YOA) 2018-2019 (AFLURIA) 0.5 ML IM ONE (07:15)
[2018-09-05 08:00] VITALS: BP 103/51
[2018-09-05] MEDS: LEVOFLOXACIN 500 MG/D5W 100 ML (PRE-MIX) IV SCH (09:07)
--- NOTE | 2018-09-05 10:05 | Diagnostic Imaging Report ---
EXAMINATION: PA and lateral chest at 0913 hours. INDICATION: Pneumonia. FINDINGS: The cardiomegaly noted on the prior exam of 09/04/2018 is again evident and perhaps somewhat less prominent. The central pulmonary vascularity is also less striking than on the prior exam although there still appears to be an element of mild pulmonary congestion present. The lung bases also seem better aerated than on the prior exam but there is still some residual atelectasis/infiltrate and fluid in each lower lobe. The upper lungs are clear. The mediastinum is not widened. The osseous structures are intact. IMPRESSION: The appearance of the chest has improved somewhat since the prior exam as there is less pulmonary congestion and the lung bases do seem somewhat better aerated. A followup study would be recommended for continued evaluation. Dictated by: Dictated on workstation # [id number]
[2018-09-05] MEDS ORDERED: TRAM50TA2 PO (10:49)
[2018-09-05] MEDS ORDERED: RT-ALBUINH INH (10:49)
[2018-09-05] MEDS ORDERED: ASPI-983 PO (10:49)
[2018-09-05] MEDS ORDERED: MENT71OI TOP (10:49)
[2018-09-05] MEDS ORDERED: CLON1TAB13 PO (10:49)
[2018-09-05] MEDS ORDERED: ESCI20TA45 PO (10:49)
[2018-09-05] MEDS ORDERED: CETI10TA17 PO (10:49)
[2018-09-05] MEDS ORDERED: ZOLP10TA5 PO (10:49)
[2018-09-05] MEDS ORDERED: FESO8TAB PO (10:49)
[2018-09-05] MEDS ORDERED: HYDR-3816 PO (10:49)
[2018-09-05] MEDS ORDERED: HYDR25TA4 PO (10:49)
[2018-09-05] MEDS ORDERED: MONT10TA24 PO (10:49)
[2018-09-05] MEDS ORDERED: ACET-2267 PO (10:50)
[2018-09-05 12:00] VITALS: BP 113/59
--- NOTE | 2018-09-05 14:47 | History & Physical-Hospitalist ---
History of Present Illness HPI/Chief Complaint The patient is a 58-year-old white female who presented to the emergency room last night with complaints of generally not feeling well. She reported she had felt this way for several days. Yesterday she reported diarrhea albeit only one watery stool and nausea. Her workup in the emergency room suggested a urinary tract infection. Given her clinical appearance it was elected to admit her on observation status. She did not have complaints of shortness of breath however her chest x-ray shows cardiomegaly a rather prominent appearance of congestive heart failure. She gives no past history of heart disease. She has smoked one half to one pack of cigarettes per day for years. She also states that she is a dietary managed diabetic. Source: patient Exam Limitations: no limitations Date Seen 09/05/18 Time Seen by a Provider: 14:43 Attending Physician Robin Troy MD PCP Silvestre Michel MD Referring Physician Date of Admission Sep 04, 2018 at 19:07 Home Medications & Allergies Home Medications Reviewed patient Home Medication Reconciliation performed by pharmacy medication reconciliations satellite tv technician installer and/or nursing. Patients Allergies have been reviewed. Allergies Allergies Coded Allergies cefaclor (Verified Allergy, Unknown, 10/20/07) Past [id number]-Oecwvm Hx Past Med/Social Hx: Reviewed Nursing Past Med/Soc Hx Patient Social History Alcohol Use: Denies Use Recreational Drug Use: No Smoking Status: Current Everyday Smoker Type Used: Cigarettes Physical Abuse Screen: No Sexual Abuse: No Recent Foreign Travel: No Contact w/other who traveled: No Recent Hopitalizations: No Recent Infectious Disease Expo: No Immunizations Up To Date Tetanus Booster (TDap): Unknown Pediatric: Yes Date of Pneumonia Vaccine: Sep 01, 2018 Date of Influenza Vaccine: Sep 01, 2018 Seasonal Allergies Seasonal Allergies: Yes Past Medical History Currently Using CPAP: No Currently Using BIPAP: No Cardiac: Hypertension : No Reproductive: Yes Sexually Transmitted Disease: No HIV/AIDS: No Genitourinary: Kidney Infection, Bladder Infection, UTI-Chronic Musculoskeletal: Osteoporosis, Arthritis, Rheumatoid Arthritis, Fractures HEENT: Cataract Loss of Vision: Denies Hearing Impairment: Hard of Hearing Psychosocial: Depression History of Blood Disorders: No Adverse Reaction to Blood Gasca: No Family History Bone cancer 19 MOTHER FH: breast cancer 19 MOTHER Review of Systems Constitutional: see HPI EENTM: no symptoms reported Respiratory: dyspnea on exertion Cardiovascular: no symptoms reported Gastrointestinal: diarrhea, nausea Genitourinary: no symptoms reported, other (vaginal yeast reported) Musculoskeletal: no symptoms reported Skin: no symptoms reported Psychiatric/Neurological: No Symptoms Reported Physical Exam Physical Exam Vital Signs Vital Signs - First Documented 09/04/18 09/04/18 14:39 22:37 Temp 99.7 Pulse 76 Resp 18 B/P (MAP) 117/82 (94) Pulse Ox 96 O2 Delivery Nasal Cannula O2 Flow Rate 4.00 FiO2 28 Capillary Refill : Less Than 3 Seconds Height, Weight, BMI Height: 5'6.00" Weight: 257lbs. 0.0oz. [id number]; 41.5 BMI Method:Stated General Appearance: Moderate Distress Eyes: Bilateral Eye Normal Inspection HEENT: Normal ENT Inspection Neck: Normal Inspection Respiratory: Other (distant breath sounds. Difficult auscultation because of the bulk) Cardiovascular: Other (difficult auscultation because of bulk) Gastrointestinal: Normal Bowel Sounds Back: Normal Inspection Extremity: Normal Capillary Refill, Normal Inspection, Normal Range of Motion, Non Tender, No Calf Tenderness, No Pedal Edema Neurologic/Psychiatric: Alert, Oriented x3, No Motor/Sensory Deficits, Normal Mood/Affect Results Results/Procedures Labs Laboratory Tests 09/04/18 14:55 09/05/18 05:28 Patient resulted labs reviewed. Assessment/Plan Admission Diagnosis Diarrhea. 2.morbid obesity 3.urinary tract infection. 4.cardiomegaly and apparent congestive heart failure. Admission Status: Inpatient Order (span 2 midnights) Reason for Inpatient Admission: Diagnosis and treatment recommendations will not be complete before to midnight status Assessment and Plan Rocephin for urinary tract infection. 2.cardiology consultation and recommendations. Clinical Quality Measures DVT/VTE Risk/Contraindication: Risk Factor Score Per Nursin RFS Level Per Nursing on Admit: 4+=Very High ROBIN TROY MD Sep 05, 2018 14:47
[2018-09-05 16:05] VITALS: BP 106/55
[2018-09-05] MEDS ORDERED: FUROSEMIDE 40 MG/4 ML INJ (LASIX) IVP NR (17:00)
--- NOTE | 2018-09-05 17:01 | Consultation-Cardiology ---
HPI-Cardiology Cardiology Consultation Date of Consultation 09/05/18 Date of Admission Time Seen by Provider: 16:57 Indication: Enlarged heart, chest pain HPI 58 years old lady with history of hypertension, diabetes, morbid obesity, admitted through the emergency room for generalized weakness, urinary tract infection and diarrhea. Noted to have enlarged heart, Dr. Latham has called me and asked me to evaluate the patient, reported some chest pain this morning responded to Tums. Denied any palpitation. No syncope or near syncopal episodes no claudication. No fever or chills Home Medications & Allergies Allergies: Coded Allergies: cefaclor (Verified Allergy, Unknown, 10/20/07) Home Medication List Reviewed: Yes FSK-Aolwhu-Puhocj Hx Patient Social History Marital Status: Alcohol Use: Denies Use Recreational Drug Use: No Smoking Status: Current Everyday Smoker Type Used: Cigarettes Recent Foreign Travel: No Recent Infectious Disease Expo: No Recent Hopitalizations: No Physical Abuse Screen: No Sexual Abuse: No Immunizations Up To Date Tetanus Booster (TDap): Unknown Date of Pneumonia Vaccine: Sep 01, 2018 Date of Influenza Vaccine: Sep 01, 2018 Past Medical History Past medical history as described below Family Medical History Family History: Bone cancer 19 MOTHER FH: breast cancer 19 MOTHER Review of Systems Constitutional: see HPI, malaise, weakness EENTM: see HPI, no symptoms reported Respiratory: see HPI; No cough; dyspnea on exertion; No hemoptysis, No orthopnea, No phlegm, No short of breath, No stridor, No wheezing, No other Cardiovascular: see HPI, chest pain; No edema, No Hx of Intervention, No palpitations, No syncope, No vascular heart diseas, No other Gastrointestinal: see HPI, diarrhea Genitourinary: see HPI, hematuria, incontinence Musculoskeletal: no symptoms reported, see HPI Skin: no symptoms reported, see HPI Psychiatric/Neurological: No Symptoms Reported, See HPI Reviewed Test Results Reviewed Test Results Lab Laboratory Tests Test 09/04/18 17:28 09/05/18 05:28 09/05/18 14:38 Range/Units Urine Color YELLOW Urine Clarity SLIGHTLY CLOUDY Urine pH 7 5-9 Urine Specific Ehrhardt 1.005 L 1.016-1.022 Urine Protein 3+ H NEGATIVE Urine Glucose (UA) NEGATIVE NEGATIVE Urine Ketones 1+ H NEGATIVE Urine Nitrite POSITIVE H NEGATIVE Urine Bilirubin NEGATIVE NEGATIVE Urine Urobilinogen 4 H NORMAL MG/DL Urine Leukocyte Esterase 3+ H NEGATIVE Urine RBC (Auto) 3+ H NEGATIVE Urine RBC 0-2 /HPF Urine WBC 50-100 H /HPF Urine Squamous Epithelial Cells 10-25 H /HPF Urine Crystals NONE /LPF Urine Bacteria LARGE H /HPF Urine Casts NONE /LPF Urine Mucus NEGATIVE /LPF Urine Culture Indicated YES Urine Opiates Screen NEGATIVE NEGATIVE Urine Oxycodone Screen NEGATIVE NEGATIVE Urine Methadone Screen NEGATIVE NEGATIVE Urine Propoxyphene Screen NEGATIVE NEGATIVE Urine Barbiturates Screen NEGATIVE NEGATIVE Ur Tricyclic Antidepressants Screen NEGATIVE NEGATIVE Urine Phencyclidine Screen NEGATIVE NEGATIVE Urine Amphetamines Screen NEGATIVE NEGATIVE Urine Methamphetamines Screen NEGATIVE NEGATIVE Urine Benzodiazepines Screen NEGATIVE NEGATIVE Urine Cocaine Screen NEGATIVE NEGATIVE Urine Cannabinoids Screen NEGATIVE NEGATIVE White Blood Count 8.5 4.3-11.0 10^3/uL Red Blood Count 4.97 4.35-5.85 10^6/uL Hemoglobin 15.1 11.5-16.0 G/DL Hematocrit 49 35-52 % Mean Corpuscular Volume 98 80-99 FL Mean Corpuscular Hemoglobin 30 25-34 PG Mean Corpuscular Hemoglobin Concent 31 L 32-36 G/DL Red Cell Distribution Width 15.9 H 10.0-14.5 % Platelet Count 209 130-400 10^3/uL Mean Platelet Volume 10.1 7.4-10.4 FL Neutrophils (%) (Auto) 68 42-75 % Lymphocytes (%) (Auto) 18 12-44 % Monocytes (%) (Auto) 11 0-12 % Eosinophils (%) (Auto) 2 0-10 % Basophils (%) (Auto) 0 0-10 % Neutrophils # (Auto) 5.8 1.8-7.8 X 10^3 Lymphocytes # (Auto) 1.5 1.0-4.0 X 10^3 Monocytes # (Auto) 1.0 0.0-1.0 X 10^3 Eosinophils # (Auto) 0.2 0.0-0.3 10^3/uL Basophils # (Auto) 0.0 0.0-0.1 10^3/uL Sodium Level 139 135-145 MMOL/L Potassium Level 3.7 3.6-5.0 MMOL/L Chloride Level 103 98-107 MMOL/L Carbon Dioxide Level 26 21-32 MMOL/L Anion Gap 10 5-14 MMOL/L Blood Urea Nitrogen 8 7-18 MG/DL Creatinine 0.75 0.60-1.30 MG/DL Estimat Glomerular Filtration Rate > 60 BUN/Creatinine Ratio 11 Glucose Level 95 70-105 MG/DL Calcium Level 8.7 8.5-10.1 MG/DL Smear Scan YES Troponin I < 0.30 <0.30 NG/ML B-Type Natriuretic Peptide 188.1 H <100.0 PG/ML Physical Exam Vital Signs Vital Signs - First Documented 09/04/18 09/04/18 14:39 22:37 Temp 99.7 Pulse 76 Resp 18 B/P (MAP) 117/82 (94) Pulse Ox 96 O2 Delivery Nasal Cannula O2 Flow Rate 4.00 FiO2 28 Capillary Refill : Less Than 3 Seconds Height, Weight, BMI Height: 5'6.00" Weight: 257lbs. 0.0oz. 116.858658yl; 41.5 BMI Method:Stated General Appearance: No Apparent Distress, WD/WN Eyes: Bilateral Eye Normal Inspection, Bilateral Eye PERRL, Bilateral Eye EOMI HEENT: PERRL/EOMI, TMs Normal, Normal ENT Inspection, Pharynx Normal Neck: Full Range of Motion, Normal Inspection, Non Tender, Supple, Carotid Bruit Respiratory: Chest Non Tender, Lungs Clear, Normal Breath Sounds, No Accessory Muscle Use, No Respiratory Distress Cardiovascular: Regular Rate, Rhythm, No Edema, No Gallop, No JVD, No Murmur, Normal Peripheral Pulses Gastrointestinal: Normal Bowel Sounds, No Organomegaly, No Pulsatile Mass, Non Tender, Soft Back: Normal Inspection, No CVA Tenderness, No Vertebral Tenderness Extremity: Normal Capillary Refill, Normal Inspection, Normal Range of Motion, Non Tender, No Calf Tenderness, No Pedal Edema Neurologic/Psychiatric: Alert, Oriented x3, No Motor/Sensory Deficits, Normal Mood/Affect Skin: Normal Color, Warm/Dry Lymphatic: No Adenopathy A/P-Cardiology Admission Diagnosis Chest pain Shortness of breath Obesity Diarrhea UTI Assessment/Plan Chest pain, atypical in presentation, responded to Tums, continue to monitor EKG , cardiac enzymes were negative, planning to evaluate echocardiogram Shortness of breath on exertion secondary to obesity and limited exercise ability. Planning to evaluate echocardiogram, discussed weight loss Diarrhea, improving, managed by Dr. Latham Urinary tract infection receiving antibiotics. Managed by Dr. Latham Obesity, BMI 41, we discussed weight loss and exercise Urinary incontinence. Generalized weakness and loss of energy. Arthritis and arthritic pain. Clinical Quality Measures DVT/VTE Risk/Contraindication: Risk Factor Score Per Nursin RFS Level Per Nursing on Admit: 4+=Very High SAMANTHA ALLISON MD Sep 05, 2018 17:01
[2018-09-05 20:15] VITALS: BP 117/77
[2018-09-06] VITALS: BP 116/56
[2018-09-06] MEDS: RT-ALBUTEROL/IPRATROPIUM 3 ML (DUONEB) VIAL INH SCH ×4 (02:23→15:19)
[2018-09-06] MEDS: NS W/KCL 40 MEQ/L 1,000 ML IV SCH ×2 (03:55→03:56)
[2018-09-06 04:00] VITALS: BP 108/54
[2018-09-06 06:42] LABS: HEMOGLOBIN 15.2 G/DL (11.5-16.0); MEAN PLATELET VOLUME 9.9 FL (7.4-10.4); RED BLOOD COUNT 4.85 10^6/uL (4.35-5.85); RED CELL DISTRIBUTION WIDTH 16.4 % (10.0-14.5); WHITE BLOOD COUNT 7.1 10^3/uL (4.3-11.0)
--- NOTE | 2018-09-06 07:43 | Cardiology Progress Note ---
Subjective Date Seen by Provider: Sep 06, 2018 Time Seen by Provider: 07:41 Subjective/Events-last exam Patient is in bed, feeling better, no chest pain today, breathing is better, no palpitations Review of Systems General: No Chills, No Night Sweats, No Fatigue, No Malaise, No Appetite, No Other HEENT: No Head Aches, No Visual Changes, No Eye Pain, No Ear Pain, No Dysphasia , No Sinus Congestion, No Post Nasal Drip, No Sore Throat, No Other Pulmonary: No Dyspnea, No Cough, No Pleuritic Chest Pain, No Other Cardiovascular: No: Chest Pain, Palpitations, Orthopnea, Paroxysmal Noc. Dyspnea, Edema, Lt Headedness, Other Objective-Cardiology Exam Last Set of Vital Signs Vital Signs 09/04/18 09/06/18 09/06/18 22:37 04:00 06:50 Temp 98.7 Pulse 70 Resp 20 B/P (MAP) 108/54 (72) Pulse Ox 92 O2 Delivery Nasal Cannula O2 Flow Rate 3.50 FiO2 28 Capillary Refill : Less Than 3 SecondsLess Than 3 Seconds I&O Intake and Output 09/06/18 00:00 Intake Total 4320 ml Output Total 904 ml Balance 3416 ml Intake Oral 2220 ml IV Total 2100 ml Output Urine Total 904 ml # Urine Diapers 4 General: Alert, Oriented X3, Cooperative HEENT: Atraumatic, PERRLA Neck: Supple, No JVD, No Thyromegaly Lungs: Clear to Auscultation, Normal Air Movement Heart: Regular Rate, Normal S1, Normal S2, No Murmurs Abdomen: Normal Bowel Sounds, Soft, No Tenderness, No Hepatosplenomegaly, No Masses Extremities: No Clubbing, No Cyanosis, No Edema, Normal Pulses, No Tenderness/ Swelling Skin: No Rashes, No Breakdown, No Significant Lesion Neuro: Normal Gait, Normal Speech, Strength at 5/5 X4 Ext, Normal Tone, Sensation Intact Psych/Mental Status: Mental Status NL, Mood NL Results Lab Laboratory Tests 09/06/18 06:18 A/P-Cardiology Admission Diagnosis Chest pain Shortness of breath Obesity Diarrhea UTI Assessment/Plan Chest pain, atypical in presentation, better today, scheduled for echo, I will evaluated stress test Shortness of breath on exertion secondary to obesity and limited exercise ability. Planning to evaluate echocardiogram, discussed weight loss Diarrhea, improving, managed by Dr. Latham Urinary tract infection receiving antibiotics. Managed by Dr. Latham Obesity, BMI 41, we discussed weight loss and exercise Urinary incontinence. Generalized weakness and loss of energy. Arthritis and arthritic pain. Clinical Quality Measures DVT/VTE Risk/Contraindication: Risk Factor Score Per Nursin RFS Level Per Nursing on Admit: 4+=Very High SAMANTHA ALLISON MD Sep 06, 2018 07:43
[2018-09-06 08:00] VITALS: BP 114/56
[2018-09-06] MEDS: LEVOFLOXACIN 500 MG/D5W 100 ML (PRE-MIX) IV SCH (09:30)
[2018-09-06] MEDS: POTASSIUM CHLORIDE INJ 40 MEQ in NS IV 1000 ML 1,000 ML IV SCH ×2 (09:30→15:27)
[2018-09-06] MEDS ORDERED: REGADENOSON 0.4 MG/5 ML SYR (LEXISCAN) IV ONE ×2 (11:15→11:30)
[2018-09-06 11:16] VITALS: BP 125/45
[2018-09-06 11:19] VITALS: BP 136/74
[2018-09-06] MEDS ORDERED: CIPR500T4 PO (13:21)
--- NOTE | 2018-09-06 13:22 | Discharge Summary-Hospitalist ---
Diagnosis/Chief Complaint Date of Admission Sep 04, 2018 at 20:14 Date of Discharge Discharge Date: Sep 06, 2018 Admission Diagnosis Diarrhea. 2.morbid obesity 3.urinary tract infection. 4.cardiomegaly and apparent congestive heart failure. Discharge Diagnosis (1) RESPIRATORY FAILURE, UNSP, UNSP W HYPOXIA OR HYPERCAPNIA Status: Acute (2) Chest pain Status: Acute (3) Obesity Status: Chronic (4) Urinary tract infection Status: Acute (5) Hypoxia Status: Acute (6) On home oxygen therapy Status: Chronic Discharge Summary Discharge Physical Exam Allergies: Coded Allergies: cefaclor (Verified Allergy, Unknown, 10/20/07) Vitals & I&Os Vital Signs Date Time Temp Pulse Resp B/P (MAP) Pulse Ox O2 Delivery O2 Flow Rate FiO2 09/06/18 13:50 94 3.50 09/06/18 11:19 75 22 136/74 (94) Nasal Cannula 09/06/18 08:00 98.0 09/04/18 22:37 28 General Appearance: No Apparent Distress, WD/WN, Chronically ill, Obese Respiratory: Chest Non Tender, Lungs Clear, Normal Breath Sounds, No Accessory Muscle Use, No Respiratory Distress Cardiovascular: Regular Rate, Rhythm, No Edema, No Gallop, No JVD, No Murmur, Normal Peripheral Pulses Neurologic/Psychiatric: Alert, Oriented x3, No Motor/Sensory Deficits, Normal Mood/Affect Hospital Course Hospital course: patient had an uneventful hospital course. She was admitted and monitored closely and all troponins were negative. Stress test was performed with negative results for ischemia. Home O2 evaluation was performed to add continuous added to night time which she already had. UTI was treated with Cipro. Labs (last 24 hrs) Laboratory Tests 09/06/18 06:18: White Blood Count 7.1, Red Blood Count 4.85, Hemoglobin 15.2, Hematocrit 47, Mean Corpuscular Volume 97, Mean Corpuscular Hemoglobin 31, Mean Corpuscular Hemoglobin Concent 32, Red Cell Distribution Width 16.4H, Platelet Count 205, Mean Platelet Volume 9.9 09/06/18 06:27: B-Type Natriuretic Peptide 144.6H Microbiology 09/04/18 Urine Culture - Final, Complete Escherichia coli Patient resulted labs reviewed. Pending Labs Discussion & Recommendations Discharge Planning: <30 minutes discharge planning Discharge Home Medications: Active Scripts Active Ciprofloxacin HCl 500 Mg Tablet 500 Mg PO BID Reported Tylenol Extra Strength (Acetaminophen) 500 Mg Tablet 1,000 Mg PO Q6H PRN Aspirin EC (Aspirin) 81 Mg Tablet.dr 81 Mg PO DAILY Clonazepam 1 Mg Tablet 1 Mg PO BID PRN Calmoseptine Ointment (Menthol/Lanolin/Calamine/Znox) 71 Gm Oint TOP BID Proair Hfa (Albuterol Sulfate) 1 Puff Puff 2 Puff INH Q4H PRN Hydrocodone-Acetamin 7.5-325 (Hydrocodone/Acetaminophen) 1 Each Tablet 1 Tab PO TID PRN Tramadol HCl 50 Mg Tablet 50 Mg PO Q4H PRN Zolpidem Tartrate 10 Mg Tablet 5 Mg PO HS PRN TAKES 1/2 (10MG) TABLET Escitalopram Oxalate 20 Mg Tablet 20 Mg PO DAILY Montelukast Sodium 10 Mg Tablet 10 Mg PO DAILY Cetirizine HCl 10 Mg Tablet 10 Mg PO DAILY Hydrochlorothiazide 25 Mg Tablet 25 Mg PO DAILY Toviaz (Fesoterodine Fumarate) 8 Mg Tab.er.24h 8 Mg PO HS Instructions to patient/family Please see electronic discharge instructions given to patient. Clinical Quality Measures DVT/VTE Risk/Contraindication: Risk Factor Score Per Nursin RFS Level Per Nursing on Admit: 4+=Very High Problem Qualifiers (1) Chest pain: Chest pain type: unspecified Qualified Codes: R07.9 - Chest pain, unspecified (2) Obesity: Obesity type: due to excess calories Obesity classification: adult class 3 ( BMI >= 40) Serious obesity comorbidity presence: with serious comorbidity Body mass index: BMI 40.0-44.9 Qualified Codes: E66.01 - Morbid (severe) obesity due to excess calories; Z68.41 - Body mass index (BMI) 40.0-44.9, adult EYAL ZHOU DO Sep 06, 2018 13:22
[2018-09-06] MEDS ORDERED: NON-FORMULARY MEDICATION 1 EA EA (Zolpidem Tartrate 5 MG) PO PRN (13:30)
[2018-09-06] MEDS ORDERED: NON-FORMULARY MEDICATION 1 EA EA (Clonazepam 1 MG) PO PRN (13:30)
[2018-09-06] MEDS ORDERED: NON-FORMULARY MEDICATION 1 EA EA (Hydrocodone/Acetaminophen (Hydrocodone-Acetamin 7.5-325) PO PRN (13:30)
[2018-09-06] MEDS ORDERED: NON-FORMULARY MEDICATION 1 EA EA (Acetaminophen (Tylenol Extra Strength) 1,000 MG) PO PRN (13:30)
[2018-09-06] MEDS ORDERED: ACETAMINOPHEN 500 MG TAB (TYLENOL) PO PRN (13:30)
[2018-09-06] MEDS ORDERED: RT-ALBUTEROL SULF 2.5 MG/3 ML PRE-MIX VIAL INH PRN (13:30)
--- NOTE | 2018-09-06 13:36 | Pulmonary Consultation ---
History of Present Illness History of Present Illness Date of Consultation 09/06/18 13:33 Date of Admission Reason for Visit: Enlarged heart, chest pain Allergies and Home Medications Allergies Coded Allergies: cefaclor (Verified Allergy, Unknown, 10/20/07) Home Medications Acetaminophen 500 Mg Tablet, 1,000 MG PO Q6H PRN for PAIN-MILD, (Reported) Albuterol Sulfate 1 Puff Puff, 2 PUFF INH Q4H PRN for SHORTNESS OF BREATH, ( Reported) Aspirin 81 Mg Tablet.dr, 81 MG PO DAILY, (Reported) Cetirizine HCl 10 Mg Tablet, 10 MG PO DAILY, (Reported) Ciprofloxacin HCl 500 Mg Tablet, 500 MG PO BID Prescribed by: EYAL ZHOU on 09/06/18 1321 Clonazepam 1 Mg Tablet, 1 MG PO BID PRN for ANXIETY, (Reported) Escitalopram Oxalate 20 Mg Tablet, 20 MG PO DAILY, (Reported) Fesoterodine Fumarate 8 Mg Tab.er.24h, 8 MG PO HS, (Reported) Hydrochlorothiazide 25 Mg Tablet, 25 MG PO DAILY, (Reported) Hydrocodone/Acetaminophen 1 Each Tablet, 1 TAB PO TID PRN for PAIN-MODERATE, ( Reported) Menthol/Lanolin/Calamine/Znox 71 Gm Oint, TOP BID, (Reported) Montelukast Sodium 10 Mg Tablet, 10 MG PO DAILY, (Reported) Tramadol HCl 50 Mg Tablet, 50 MG PO Q4H PRN for PAIN-MODERATE, (Reported) Zolpidem Tartrate 10 Mg Tablet, 5 MG PO HS PRN for SLEEP, (Reported) TAKES 1/2 (10MG) TABLET Past Jvlzktw-Fiphjb-Fzcwpd Hx Past Med/Social Hx: Reviewed Nursing Past Med/Soc Hx Patient Social History Alcohol Use: Denies Use Recreational Drug Use: No Smoking Status: Current Everyday Smoker Type Used: Cigarettes Recent Foreign Travel: No Contact w/Someone Who Travel: No Recent Infectious Disease Expo: No Recent Hopitalizations: No Immunizations Up To Date Tetanus Booster (TDap): Unknown PED Vaccines UTD: Yes Date of Pneumonia Vaccine: Sep 01, 2018 Date of Influenza Vaccine: Sep 01, 2018 Seasonal Allergies Seasonal Allergies: Yes Past Medical History Surgeries: Yes Respiratory: Yes Asthma, Pneumonia, COPD Currently Using CPAP: No Currently Using BIPAP: No Cardiac: No Hypertension Neurological: No : No Reproductive Disorders: Yes Sexually Transmitted Disease: No HIV/AIDS: No Genitourinary: Yes Kidney Infection, Bladder Infection, UTI-Chronic Gastrointestinal: No Musculoskeletal: Yes (left shoulder fx and right ankle fx) Osteoporosis, Arthritis, Rheumatoid Arthritis, Fractures Endocrine: No HEENT: Yes Cataract Loss of Vision: Denies Hearing Impairment: Hard of Hearing Cancer: No Psychosocial: Yes Depression Integumentary: No Blood Disorders: No Adverse Reaction/Blood Tranf: No Family Medical History Bone cancer 19 MOTHER FH: breast cancer 19 MOTHER Sepsis Event Evaluation Height, Weight, BMI Height: 5'6.00" Weight: 257lbs. 0.0oz. 116.675342nu; 41.5 BMI Method:Stated Exam Exam Vital Signs Date Time Temp Pulse Resp B/P (MAP) Pulse Ox O2 Delivery O2 Flow Rate FiO2 09/06/18 11:19 75 22 136/74 (94) 91 Nasal Cannula 3.00 09/06/18 11:16 73 22 125/45 (71) 78 Room Air 09/06/18 08:00 Nasal Cannula 2.00 09/06/18 08:00 98.0 65 22 114/56 (75) 94 Nasal Cannula 4.00 09/06/18 06:50 92 Nasal Cannula 3.50 09/06/18 04:00 98.7 70 20 108/54 (72) 94 Nasal Cannula 4.00 09/06/18 02:23 93 Nasal Cannula 3.50 09/06/18 00:00 98.5 69 20 116/56 (76) 94 Nasal Cannula 4.00 09/05/18 21:34 95 Nasal Cannula 3.50 09/05/18 20:15 98.9 66 18 117/77 (90) 95 Nasal Cannula 4.00 09/05/18 20:00 Nasal Cannula 3.50 09/05/18 16:05 97.5 61 20 106/55 (72) 94 Nasal Cannula 4.00 09/05/18 14:52 92 Nasal Cannula 4.00 I & O 09/06/18 07:00 Intake Total 4060 ml Output Total 804 ml Balance 3256 ml Height & Weight Height: 5'6.00" Weight: 257lbs. 0.0oz. 116.785669sp; 41.5 BMI Method:Stated General Appearance: No Apparent Distress, WD/WN HEENT: PERRL/EOMI, TMs Normal, Normal ENT Inspection, Pharynx Normal Neck: Full Range of Motion, Normal Inspection, Non Tender, Supple, Carotid Bruit Respiratory: Chest Non Tender, Lungs Clear, Normal Breath Sounds, No Accessory Muscle Use, No Respiratory Distress Cardiovascular: Regular Rate, Rhythm, No Edema, No Gallop, No JVD, No Murmur, Normal Peripheral Pulses Capillary Refill: Less Than 3 Seconds Peripheral Pulses: 2+ Radial Pulses (R), 2+ Radial Pulses (L) Gastrointestinal: normal bowel sounds, non tender, soft Extremity: Normal Capillary Refill, Normal Inspection, Normal Range of Motion, Non Tender, No Calf Tenderness, No Pedal Edema Neurologic/Psychiatric: Alert, Oriented x3, No Motor/Sensory Deficits, Normal Mood/Affect Skin: Normal Color, Warm/Dry Lymphatic: No Adenopathy Results Lab Laboratory Tests 09/04/18 14:55 09/05/18 05:28 09/06/18 06:18 Assessment/Plan Assessment/Plan SOB with pulmonary congestion Atypical CP -Echo pending Morbid obesity with BMI 41 -Probable MICHELLE -Wll do out patient PSG work up -Will do PFT as out patient MARIANNA LUJAN DO Sep 06, 2018 13:36
[2018-09-06] MEDS ORDERED: ZOLPIDEM 5 MG (AMBIEN) TAB PO PRN (13:45)
[2018-09-06] MEDS ORDERED: HYDROcodone/APAP 7.5 MG/325 MG (LORTAB, LORCET PLUS) TABLET PO PRN (13:45)
[2018-09-06] MEDS ORDERED: clonazePAM 1 MG (KlonoPIN) TAB PO PRN (13:45)
--- NOTE | 2018-09-06 14:56 | STRESS TEST ---
DATE OF SERVICE: 09/06/2018 LEXISCAN MYOVIEW STRESS TEST REPORT Baseline heart rate is 72, baseline blood pressure 125/45. Baseline EKG is sinus rhythm with no ischemic changes. In summary, the patient was injected with 10.52 mCi of technetium-99 Myoview and the resting images were obtained. Then, the patient received 0.4 mg of Lexiscan followed by 30.2 mCi of technetium-99 Myoview. Throughout the test, there were no EKG changes. The resting and stress images were reviewed and compared in the short axis, horizontal long axis, and vertical long axis views. Review of the images showed good radiotracer uptake with breast attenuation affecting the quality of the images, no significant ischemia or infarction. SSS is 2, SDS 2, TID value 1.14. On the gated images, the left ventricle appeared to be in normal size with normal contractility. Calculated ejection fraction 53%. CONCLUSION: 1. The patient tolerated Lexiscan well. 2. Breast attenuation with no significant ischemia or infarction on SPECT images. 3. Normal left ventricular size with normal contractility. Calculated ejection fraction 53%. Job ID: [id number] DocumentID: [id number] Dictated Date: 09/06/2018 14:47:52 [employer] Date: 09/06/2018 14:56:29 Dictated By: SAMANTHA ALLISON MD
[2018-09-06] MEDS ORDERED: MENTHOL/ZINC OXIDE (CALMOSEPTINE) 113 GM TUBE TOP SCH (21:00)
[2018-09-06] MEDS ORDERED: NON-FORMULARY MEDICATION 1 EA EA (Fesoterodine Fumarate (Toviaz) 8 MG) PO SCH (21:00)
[2018-09-06] MEDS ORDERED: TOLTERODINE LA 4 MG (DETROL) CAP PO SCH (21:00)
[2018-09-07] MEDS ORDERED: NON-FORMULARY MEDICATION 1 EA EA (Escitalopram Oxalate 20 MG) PO SCH (09:00)
[2018-09-07] MEDS ORDERED: MONTELUKAST 10 MG (SINGULAIR) TAB PO SCH (09:00)
[2018-09-07] MEDS ORDERED: HYDROCHLOROTHIAZIDE 25 MG (HCTZ) TAB PO SCH (09:00)
[2018-09-07] MEDS ORDERED: NON-FORMULARY MEDICATION 1 EA EA (Hydrochlorothiazide 25 MG) PO SCH (09:00)
[2018-09-07] MEDS ORDERED: ASPIRIN E.C. 81 MG (ECOTRIN) TAB PO SCH (09:00)
[2018-09-07] MEDS ORDERED: NON-FORMULARY MEDICATION 1 EA EA (Cetirizine HCl 10 MG) PO SCH (09:00)
[2018-09-07] MEDS ORDERED: LORATADINE (CLARITIN) 10 MG TAB PO SCH (09:00)
== END 2018-09-06 14:05 | disposition home or self-care (01) ==
LOC: EDUNIT# 14:36 → ER 14:37 → UNDOADMOB 19:07 → 4TH 19:07
PROVIDERS: ADMIT Internal Medicine; ATTEND Internal Medicine
DX: J96.21 Acute and chronic respiratory failure with hypoxia (principal); R07.9 Chest pain, unspecified; J44.9 Chronic obstructive pulmonary disease, unspecified; E66.01 Morbid (severe) obesity due to excess calories; N39.0 Urinary tract infection, site not specified; Z99.81 Dependence on supplemental oxygen; Z79.899 Other long term (current) drug therapy; Z79.82 Long term (current) use of aspirin; Z68.41 Body mass index [BMI] 40.0-44.9, adult; K52.9 Noninfective gastroenteritis and colitis, unspecified; R32 Unspecified urinary incontinence; R53.1 Weakness; M19.91 Primary osteoarthritis, unspecified site; F17.210 Nicotine dependence, cigarettes, uncomplicated
CPT/HCPCS: 36415; 71045; 71046; 78452; 80048; 80053; 80306; 81000; 83735; 83880; 84484; 85025; 85027; 85610; 85730; 87077; 87088; 87186; 93005; 93017; 93306; 94640; 94760; 94761; 96361; 96365; 96375; G0378

== ENCOUNTER → 2018-10-02 | Outpatient (CLI) | payer MEDICAID ==
[~2018-10-02] MED LIST changes: +ACET-2267 PO; +ASPI-983 PO; +CIPR500T4 PO; +CLON1TAB13 PO; +ESCI20TA45 PO; +FESO8TAB PO; +HYDR-3816 PO; +HYDR25TA4 PO; +MENT71OI TOP; +MONT10TA24 PO; +RT-ALBUINH INH; +TRAM50TA2 PO; +ZOLP10TA5 PO
--- NOTE | 2018-10-02 12:14 | Diagnostic Imaging Report ---
EXAMINATION: Pelvic ultrasound. INDICATION: Postmenopausal bleeding. COMPARISON: There are no prior studies available for comparison. This study was technically difficult due to the patient's body habitus. The patient was also unable to tolerate the exam. FINDINGS: The uterus is not enlarged measuring 6.3 x 5.2 x 4.5 cm. The endometrial lining is thickened measuring 16 mm (normal postmenopausal patient 5 mm or less). There also appears to be a very small amount of fluid within the endometrium. This is of uncertain etiology. There is no solid mass involving the uterus to suggest a fibroid. Neither ovary could be identified. There is no pelvic mass or free fluid collection noted. IMPRESSION: 1. The uterus is not enlarged, and there is no focal mass to suggest a fibroid. However, the endometrial lining does seem thickened for a postmenopausal patient. If further evaluation is desired, then hysteroscopy would be recommended. 2. Neither ovary was identified. 3. There is no acute pelvic abnormality noted. Dictated by: Dictated on workstation # [id number]
== END ==
LOC: RAD 10:20
PROVIDERS: ATTEND Obstetrics & Gynecology
DX: N85.8 Other specified noninflammatory disorders of uterus (principal); N95.0 Postmenopausal bleeding
CPT/HCPCS: 76830; 76856

== ENCOUNTER → 2018-10-06 | Outpatient (CLI) | payer MEDICAID ==
--- NOTE | 2018-10-06 12:44 | Diagnostic Imaging Report ---
PROCEDURE: CT chest without contrast. TECHNIQUE: Multiple contiguous axial images were obtained through the chest without the use of intravenous contrast. INDICATION: Cough, asthma. COMPARISON: CT chest of 07/11/2017. FINDINGS: Lungs and airway: No endoluminal nodule within the trachea. Mild centrilobular emphysema is present. No pulmonary mass or consolidation. No concerning pulmonary nodules. Pleura: No pleural effusion or pneumothorax. Heart and mediastinum: Thyroid is normal. No supraclavicular or axillary lymphadenopathy. There are a few scattered mildly enlarged mediastinal and hilar lymph nodes that have not changed since prior exam. Dominant mediastinal lymph nodes include a 1.7 cm lower right paratracheal lymph node and a 1.0 cm prevascular lymph node, both unchanged in size since prior exam. No new lymphadenopathy in the chest. Upper abdomen: Cholelithiasis is again noted. No concerning abnormality in the upper abdomen. Partially imaged exophytic cyst in the upper pole of the left kidney. Musculoskeletal: Chronic compression fracture of L1 is unchanged. No new thoracic compression fracture. IMPRESSION: 1. No change in multiple mildly enlarged mediastinal and hilar lymph nodes when compared to 07/11/2017 exam. Therefore, these can be considered benign in etiology and likely due to sequelae of prior infection/inflammation. 2. No pulmonary mass or nodule. No acute cardiopulmonary process. 3. Stable cholelithiasis. Dictated by: Dictated on workstation # [id number]
== END ==
LOC: RAD 08:39
PROVIDERS: ATTEND Nurse Practitioner Family
DX: J44.9 Chronic obstructive pulmonary disease, unspecified (principal); G47.10 Hypersomnia, unspecified; G47.50 Parasomnia, unspecified; J18.9 Pneumonia, unspecified organism
CPT/HCPCS: 71250

== ENCOUNTER → 2019-03-22 | Outpatient (CLI) | payer MEDICAID ==
--- NOTE | 2019-03-23 19:52 | Diagnostic Imaging Report ---
INDICATION: Routine screening. Comparison is made with prior mammogram from 08/14/2015 2-D and 3-D bilateral screening mammography was performed with CAD. The current study was also evaluated with a Computer Aided Detection (CAD) system. Scattered fibroglandular densities are identified bilaterally. Positioning was difficult. Patient was done in a wheelchair. Intraparenchymal lymph node left breast appears stable. No spiculated mass or malignant appearing microcalcifications are seen. Axillae are unremarkable. IMPRESSION: No mammographic features suspicious for malignancy are identified. ACR BI-RADS Category 2: Benign findings. Result letter will be mailed to the patient. Note: At least 10% of breast cancer is not imaged by mammography. Dictated by: Dictated on workstation # [id number]
== END ==
LOC: RAD 15:54
PROVIDERS: ATTEND Family Medicine
DX: Z12.31 Encounter for screening mammogram for malignant neoplasm of breast (principal)
CPT/HCPCS: 77067

== ENCOUNTER 2019-03-26 11:39 | Inpatient (IN) | payer MEDICAID ==
[~2019-03-26] VITALS: Ht 165.1 cm; Wt 131.7 kg
--- OUTSIDE RECORDS SUMMARY | 2019-03-26 11:44 | XMS REPORT ---
Author Author GERALD ANDREZ Organization [facility] Address [address] [place] [address] Care Team Providers Care Make Up Artist Name Role Phone DUARTEANDREZ Hendrickson Unavailable PROBLEMS Unknown Problems ALLERGIES Substance Reaction Event Type Date Status Cefaclor hives Drug Allergy Jun, Active ENCOUNTERS Encounter Location Date Diagnosis [facility] [address] [facility] [id number] [address] Jun, IMMUNIZATIONS No Known Immunizations SOCIAL HISTORY Never Assessed REASON FOR VISIT PMH obtained. TGrosdidomingo RN PLAN OF CARE VITAL SIGNS MEDICATIONS Medication Instructions Dosage Frequency Start Date End Date Duration Status Singulair 10 MG Orally Once a day 1 tablet in the evening 24h Active Azithromycin 250 MG Orally Once a day 2 tablets on the first day, then 1 tablet daily for 4 days 24h Jun, Active potassium 1 tab Active Lexapro 20 MG Orally Once a day 0.5 tablet 24h Active Klonopin 1 MG Orally PRN 1 tablet Active Oxycodone-Acetaminophen 10-325 MG Orally every 6 hrs 1 tablet as needed 6h Active Zyrtec Allergy 10 MG Orally Once a day 1 tablet 24h Active Ambien 10 MG Orally Once a day 1 tablet at bedtime as needed 24h Active Aspir-81 81 MG Orally Once a day 1 tablet 24h Active Hydrochlorothiazide 25 MG Orally Once a day 1 tablet in the morning 24h Active RESULTS No Results PROCEDURES No Known procedures INSTRUCTIONS MEDICATIONS ADMINISTERED No Known Medications MEDICAL (GENERAL) HISTORY Type Description Date Medical History bone disease/Osteoporsis Medical History chronic obstructive pulmonary disease (COPD) Medical History anxiety Medical History hypertension Medical History basal cell carcinoma right arm Medical History type II diabetes Surgical History tubal ligation 1986 Surgical History section 1987 Surgical History appendectomy 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
--- OUTSIDE RECORDS SUMMARY | 2019-03-26 11:45 | XMS REPORT | Continuity of Care Document ---
Author Organization Unknown Address Unknown Allergies Active Description Code Type Severity Reaction Onset Reported/Identified Relationship to Patient Clinical Status Yes cefaclor [id number] Drug Allergy Unknown N/A 10/20/2007 Medications There is no data. Problems Date Dx Coded Attending Type Code Diagnosis Diagnosed By 12/13/2011 Ot 216.6 BENIGN JULISSA SKIN ARM 08/14/2015 Ot 715.34 08/14/2015 Ot 786.2 08/14/2015 Ot 727.42 08/14/2015 Ot V72.63 08/14/2015 Ot V74.8 08/14/2015 Ot 721.2 08/14/2015 Ot 721.42 08/14/2015 Ot 721.8 08/14/2015 Ot 722.52 08/14/2015 ZAYDA OLIVAREZ, PRAVEENA R Ot 112.0 08/18/2015 ZAYDA OLIVAREZ, PRAVEENA R Ot Z12.31 09/01/2015 ZAYDA OLIVAREZ, PRAVEENA R Ot Z12.31 10/23/2015 ZAYDA OLIVAREZ, PRAVEENA R Ot F32.9 10/23/2015 ZAYDA OLIVAREZ, PRAVEENA R Ot G47.00 10/23/2015 ZAYDA OLIVAREZ, PRAVEENA R Ot I10 10/23/2015 ZAYDA OLIVAREZ, PRAVEENA R Ot R32 08/08/2016 ZAYDA OLIVAREZ, PRAVEENA R Ot Z53.9 PROCEDURE AND TREATMENT NOT CARRIED OUT, 01/28/2017 Ot 786.2 COUGH 01/28/2017 Ot 727.42 GANGLION OF TENDON 01/28/2017 Ot V72.63 PRE-PROCEDURAL LABORATORY EXAMINATION 01/28/2017 Ot V74.8 SCREEN-BACTERIAL DIS NEC 01/28/2017 Ot 721.2 THORACIC SPONDYLOSIS 01/28/2017 Ot 721.42 SPOND COMPR LUMB SP CORD 01/28/2017 Ot 721.8 SPINAL DISORDERS NEC 01/28/2017 Ot 722.52 LUMB/LUMBOSAC DISC DEGEN 01/28/2017 PRAVEENA PRIEST MD R Ot 112.0 THRUSH 01/28/2017 PRAVEENA PRIEST MD R Ot Z12.31 ENCNTR SCREEN MAMMOGRAM FOR MALIGNANT NE 01/28/2017 PRAVEENA PRIEST MD R Ot F32.9 MAJOR DEPRESSIVE DISORDER, SINGLE EPISOD 01/28/2017 PRAVEENA PRIEST MD R Ot G47.00 INSOMNIA, UNSPECIFIED 01/28/2017 PRAVEENA PIREST MD R Ot I10 ESSENTIAL (PRIMARY) HYPERTENSION 01/28/2017 PRAVEENA PRIEST MD R Ot R32 UNSPECIFIED URINARY INCONTINENCE 01/28/2017 PRAVEENA PRIEST MD R Ot Z53.9 PROCEDURE AND TREATMENT NOT CARRIED OUT, 02/15/2017 PRAVEENA PRIEST MD R Ot M79.661 PAIN IN RIGHT LOWER LEG 02/15/2017 PRAVEENA PRIEST MD R Ot M79.662 PAIN IN LEFT LOWER LEG 03/18/2017 PRAVEENA PRIEST MD R Ot E87.6 HYPOKALEMIA 03/18/2017 PRAVEENA PRIEST MD R Ot R63.1 POLYDIPSIA 05/24/2017 PRAVEENA PRIEST MD R Ot R07.89 OTHER CHEST PAIN 07/11/2017 SUSAN TANG APRN Ot K80.20 CALCULUS OF GALLBLADDER W/O CHOLECYSTITI 07/11/2017 SUSAN TANG APRN Ot N64.4 MASTODYNIA 07/11/2017 SUSAN TANG APRN Ot S20.211A CONTUSION OF RIGHT FRONT WALL OF THORAX, 07/11/2017 SUSAN TANG APRN Ot W17.89XA OTHER FALL FROM ONE LEVEL TO ANOTHER, IN 07/11/2017 SUSAN TANG APRN Ot Z79.82 POULTRY EVISCERATOR (CURRENT) USE OF ASPIRIN 07/15/2017 SUSAN TANG APRN Ot K80.20 CALCULUS OF GALLBLADDER W/O CHOLECYSTITI 07/15/2017 SUSAN TANG APRN Ot N64.4 MASTODYNIA 07/15/2017 SUSAN TANG APRN Ot S20.211A CONTUSION OF RIGHT FRONT WALL OF THORAX, 07/15/2017 SUSAN TANG APRN Ot W17.89XA OTHER FALL FROM ONE LEVEL TO ANOTHER, IN 07/15/2017 SUSAN TANG APRN Ot Z79.82 HALFWAY (CURRENT) USE OF ASPIRIN 05/16/2018 PRAVEENA PRIEST MD Ot 112.0 THRUSH 05/16/2018 PRAVEENA PRIEST MD Ot Z12.31 ENCNTR SCREEN MAMMOGRAM FOR MALIGNANT NE 05/16/2018 PRAVEENA PRIEST MD Ot F32.9 MAJOR DEPRESSIVE DISORDER, SINGLE EPISOD 05/16/2018 PRAVEENA PRIEST MD Ot G47.00 INSOMNIA, UNSPECIFIED 05/16/2018 PRAVEENA PRIEST MD Ot I10 ESSENTIAL (PRIMARY) HYPERTENSION 05/16/2018 PRAVEENA PRIEST MD Ot R32 UNSPECIFIED URINARY INCONTINENCE 05/16/2018 PRAVEENA PRIEST MD, Ot Z53.9 PROCEDURE AND TREATMENT NOT CARRIED OUT, 05/16/2018 PRAVEENA PRIEST MD Ot M79.661 PAIN IN RIGHT LOWER LEG 05/16/2018 PRAVEENA PRIEST MD Ot M79.662 PAIN IN LEFT LOWER LEG 05/16/2018 PRAVEENA PRIEST MD Ot E87.6 HYPOKALEMIA 05/16/2018 PRAVEENA PRIEST MD Ot R63.1 POLYDIPSIA 05/16/2018 PRAVEENA PRIEST MD Ot R07.89 OTHER CHEST PAIN 06/21/2018 Ot R91.8 OTHER NONSPECIFIC ABNORMAL FINDING OF MAYE 09/06/2018 DALILA TROY MD Ot E66.01 MORBID (SEVERE) OBESITY DUE TO EXCESS CA 09/06/2018 DALILA TROY MD Ot F17.210 NICOTINE DEPENDENCE, CIGARETTES, UNCOMPL 09/06/2018 DALILA TROY MD Ot J44.9 CHRONIC OBSTRUCTIVE PULMONARY DISEASE, U 09/06/2018 DALILA TROY MD Ot J96.21 ACUTE AND CHRONIC RESPIRATORY FAILURE [place] 09/06/2018 DALILA TROY MD Ot K52.9 NONINFECTIVE GASTROENTERITIS AND COLITIS 09/06/2018 DALILA TROY MD Ot M19.91 PRIMARY OSTEOARTHRITIS, UNSPECIFIED SITE 09/06/2018 DALILA TROY MD Ot N39.0 URINARY TRACT INFECTION, SITE NOT SPECIF 09/06/2018 DALILA TROY MD Ot R07.9 CHEST PAIN, UNSPECIFIED 09/06/2018 DALILA TROY MD, Ot R32 UNSPECIFIED URINARY INCONTINENCE 09/06/2018 DALILA TROY MD, Ot R53.1 WEAKNESS 09/06/2018 DALILA TROY MD, Ot Z68.41 BODY MASS INDEX (BMI) 40.0-44.9, ADULT 09/06/2018 DALILA TROY MD, Ot Z79.82 POULTRY EVISCERATOR (CURRENT) USE OF ASPIRIN 09/06/2018 DALILA TROY MD, Ot Z79.899 OTHER HALFWAY (CURRENT) DRUG THERAPY 09/06/2018 DALILA TROY MD, Ot Z99.81 DEPENDENCE ON SUPPLEMENTAL OXYGEN 09/06/2018 DALILA TROY MD Ot E66.01 MORBID (SEVERE) OBESITY DUE TO EXCESS CA 09/06/2018 DALILA TROY MD, Ot F17.210 NICOTINE DEPENDENCE, CIGARETTES, UNCOMPL 09/06/2018 DALILA TROY MD, Ot J44.9 CHRONIC OBSTRUCTIVE PULMONARY DISEASE, U 09/06/2018 DALILA TROY MD, Ot J96.21 ACUTE AND CHRONIC RESPIRATORY FAILURE [place] 09/06/2018 DALILA TROY MD, Ot K52.9 NONINFECTIVE GASTROENTERITIS AND COLITIS 09/06/2018 DALILA TROY MD Ot M19.91 PRIMARY OSTEOARTHRITIS, UNSPECIFIED SITE 09/06/2018 DALILA TROY MD, Ot N39.0 URINARY TRACT INFECTION, SITE NOT SPECIF 09/06/2018 DALILA TROY MD, Ot R07.9 CHEST PAIN, UNSPECIFIED 09/06/2018 DALILA TROY MD Ot R32 UNSPECIFIED URINARY INCONTINENCE 09/06/2018 DALILA TROY MD Ot R53.1 WEAKNESS 09/06/2018 DALILA TROY MD, Ot Z68.41 BODY MASS INDEX (BMI) 40.0-44.9, ADULT 09/06/2018 DALILA TROY MD, Ot Z79.82 POULTRY EVISCERATOR (CURRENT) USE OF ASPIRIN 09/06/2018 DALILA TROY MD, Ot Z79.899 OTHER POULTRY EVISCERATOR (CURRENT) DRUG THERAPY 09/06/2018 DALILA TROY MD, Ot Z99.81 DEPENDENCE ON SUPPLEMENTAL OXYGEN 10/04/2018 DILAN MARTINEZ DO S Ot N85.8 OTHER SPECIFIED NONINFLAMMATORY DISORDER 10/04/2018 FENECH DO, DILAN S Ot N95.0 POSTMENOPAUSAL BLEEDING 10/04/2018 FENECH DO, DILAN S Ot N85.8 OTHER SPECIFIED NONINFLAMMATORY DISORDER 10/04/2018 FENECH DO, DILAN S Ot N95.0 POSTMENOPAUSAL BLEEDING 10/09/2018 DINHPANTERA MCBRIDE COURSEWARE DEVELOPER Ot G47.10 HYPERSOMNIA, UNSPECIFIED 10/09/2018 DINHEMELIA MCBRIDEINE E COURSEWARE DEVELOPER Ot G47.50 PARASOMNIA, UNSPECIFIED 10/09/2018 DINHEMELIAPANTERA E COURSEWARE DEVELOPER Ot J18.9 PNEUMONIA, UNSPECIFIED ORGANISM 10/09/2018 DINH PANTERA E COURSEWARE DEVELOPER Ot J44.9 CHRONIC OBSTRUCTIVE PULMONARY DISEASE, U 10/19/2018 FENECH DO, DILAN S Ot N85.8 OTHER SPECIFIED NONINFLAMMATORY DISORDER 10/19/2018 FENECH DO, DILAN S Ot N95.0 POSTMENOPAUSAL BLEEDING 10/23/2018 EMELIA TAOINE Lynnette COURSEWARE DEVELOPER Ot G47.10 HYPERSOMNIA, UNSPECIFIED 10/23/2018 PANTERA TAO COURSEWARE DEVELOPER Ot G47.50 PARASOMNIA, UNSPECIFIED 10/23/2018 EMELIA TAOINE Lynnette COURSEWARE DEVELOPER Ot J18.9 PNEUMONIA, UNSPECIFIED ORGANISM 10/23/2018 DINHEMELIAPANTERA Lynnette COURSEWARE DEVELOPER Ot J44.9 CHRONIC OBSTRUCTIVE PULMONARY DISEASE, U 03/23/2019 ZAYDA OLIVAREZ, PRAVEENA Wolfe Ot Z12.31 ENCNTR SCREEN MAMMOGRAM FOR MALIGNANT NE Procedures There is no data. Results Test Result Range Complete blood count (CBC) with automated white blood cell (WBC) differential - 03/05/17 11:28 Blood leukocytes automated count (number/volume) 5.9 10*3/uL 4.3-11.0 Blood erythrocytes automated count (number/volume) 4.88 10*6/uL 4.35-5.85 Venous blood hemoglobin measurement (mass/volume) 15.9 g/dL 11.5-16.0 Blood hematocrit (volume fraction) 49 % 35-52 Automated erythrocyte mean corpuscular volume 100 [foz_us] 80-99 Automated erythrocyte mean corpuscular hemoglobin (mass per erythrocyte) 33 pg 25-34 Automated erythrocyte mean corpuscular hemoglobin concentration measurement (mass/volume) 33 g/dL 32-36 Automated erythrocyte distribution width ratio 13.7 % 10.0- 14.5 Automated blood platelet count (count/volume) 335 10*3/uL 130-400 Automated blood platelet mean volume measurement 9.1 [foz_us] 7.4-10.4 Automated blood neutrophils/100 leukocytes 59 % 42-75 Automated blood lymphocytes/100 leukocytes 26 % 12-44 Blood monocytes/100 leukocytes 9 % 0-12 Automated blood eosinophils/100 leukocytes 5 % 0-10 Automated blood basophils/100 leukocytes 1 % 0-10 Blood neutrophils automated count (number/volume) 3.5 10*3 1.8-7.8 Blood lymphocytes automated count (number/volume) 1.6 10*3 1.0-4.0 Blood monocytes automated count (number/volume) 0.5 10*3 0.0- 1.0 Automated eosinophil count 0.3 10*3/uL 0.0-0.3 Automated blood basophil count (count/volume) 0.1 10*3/uL 0.0-0.1 Comprehensive metabolic panel - 03/05/17 11:28 Serum or plasma sodium measurement (moles/volume) 141 mmol/L 135-145 Serum or plasma potassium measurement (moles/volume) 4.0 mmol/L 3.6-5.0 Serum or plasma chloride measurement (moles/volume) 101 mmol/L 98-107 Carbon dioxide 30 mmol/L 21-32 Serum or plasma anion gap determination (moles/volume) 10 mmol/L 5-14 Serum or plasma urea nitrogen measurement (mass/volume) 6 mg/dL 7-18 Serum or plasma creatinine measurement (mass/volume) 0.78 mg/dL 0.60-1.30 Serum or plasma urea nitrogen/creatinine mass ratio 8 NRG Serum or plasma creatinine measurement with calculation of estimated glomerular filtration rate > NRG Serum or plasma glucose measurement (mass/volume) 91 mg/dL 70-105 Serum or plasma calcium measurement (mass/volume) 9.3 mg/dL 8.5-10.1 Serum or plasma total bilirubin measurement (mass/volume) 0.4 mg/dL 0.1-1.0 Serum or plasma alkaline phosphatase measurement (enzymatic activity/volume) 76 U/L 40-136 Serum or plasma aspartate aminotransferase measurement (enzymatic activity/volume) 10 U/L 5-34 Serum or plasma alanine aminotransferase measurement (enzymatic activity/volume) 9 U/L 0-55 Serum or plasma protein measurement (mass/volume) 7.0 g/dL 6.4-8.2 Serum or plasma albumin measurement (mass/volume) 3.5 g/dL 3.2-4.5 Hemoglobin A1c - 03/05/17 11:28 Hemoglobin A1c 5.2 % 4.5-6.2 Complete blood count (CBC) with automated white blood cell (WBC) differential - 07/11/17 15:20 Blood leukocytes automated count (number/volume) 8.7 10*3/uL 4.3-11.0 Blood erythrocytes automated count (number/volume) 4.72 10*6/uL 4.35-5.85 Venous blood hemoglobin measurement (mass/volume) 15.5 g/dL 11.5-16.0 Blood hematocrit (volume fraction) 46 % 35-52 Automated erythrocyte mean corpuscular volume 98 [foz_us] 80-99 Automated erythrocyte mean corpuscular hemoglobin (mass per erythrocyte) 33 pg 25-34 Automated erythrocyte mean corpuscular hemoglobin concentration measurement (mass/volume) 34 g/dL 32-36 Automated erythrocyte distribution width ratio 15.0 % 10.0- 14.5 Automated blood platelet count (count/volume) 321 10*3/uL 130-400 Automated blood platelet mean volume measurement 9.3 [foz_us] 7.4-10.4 Automated blood neutrophils/100 leukocytes 61 % 42-75 Automated blood lymphocytes/100 leukocytes 24 % 12-44 Blood monocytes/100 leukocytes 11 % 0-12 Automated blood eosinophils/100 leukocytes 4 % 0-10 Automated blood basophils/100 leukocytes 1 % 0-10 Blood neutrophils automated count (number/volume) 5.3 10*3 1.8-7.8 Blood lymphocytes automated count (number/volume) 2.1 10*3 1.0-4.0 Blood monocytes automated count (number/volume) 1.0 10*3 0.0- 1.0 Automated eosinophil count 0.4 10*3/uL 0.0-0.3 Automated blood basophil count (count/volume) 0.1 10*3/uL 0.0-0.1 Comprehensive metabolic panel - 07/11/17 15:20 Serum or plasma sodium measurement (moles/volume) 139 mmol/L 135-145 Serum or plasma potassium measurement (moles/volume) 3.2 mmol/L 3.6-5.0 Serum or plasma chloride measurement (moles/volume) 99 mmol/L 98-107 Carbon dioxide 30 mmol/L 21-32 Serum or plasma anion gap determination (moles/volume) 10 mmol/L 5-14 Serum or plasma urea nitrogen measurement (mass/volume) 6 mg/dL 7-18 Serum or plasma creatinine measurement (mass/volume) 0.79 mg/dL 0.60-1.30 Serum or plasma urea nitrogen/creatinine mass ratio 8 NRG Serum or plasma creatinine measurement with calculation of estimated glomerular filtration rate > NRG Serum or plasma glucose measurement (mass/volume) 86 mg/dL 70-105 Serum or plasma calcium measurement (mass/volume) 8.9 mg/dL 8.5-10.1 Serum or plasma total bilirubin measurement (mass/volume) 0.3 mg/dL 0.1-1.0 Serum or plasma alkaline phosphatase measurement (enzymatic activity/volume) 92 U/L 40-136 Serum or plasma aspartate aminotransferase measurement (enzymatic activity/volume) 8 U/L 5-34 Serum or plasma alanine aminotransferase measurement (enzymatic activity/volume) 7 U/L 0-55 Serum or plasma protein measurement (mass/volume) 7.0 g/dL 6.4-8.2 Serum or plasma albumin measurement (mass/volume) 3.4 g/dL 3.2-4.5 Serum or plasma lithium measurement (moles/volume) - 07/11/17 15:20 BNP level 81.5 pg/mL <100.0 Complete blood count (CBC) with automated white blood cell (WBC) differential - 05/16/18 08:12 Blood leukocytes automated count (number/volume) 6.9 10*3/uL 4.3-11.0 Blood erythrocytes automated count (number/volume) 5.08 10*6/uL 4.35-5.85 Venous blood hemoglobin measurement (mass/volume) 16.6 g/dL 11.5-16.0 Blood hematocrit (volume fraction) 50 % 35-52 Automated erythrocyte mean corpuscular volume 98 [foz_us] 80-99 Automated erythrocyte mean corpuscular hemoglobin (mass per erythrocyte) 33 pg 25-34 Automated erythrocyte mean corpuscular hemoglobin concentration measurement (mass/volume) 33 g/dL 32-36 Automated erythrocyte distribution width ratio 14.9 % 10.0- 14.5 Automated blood platelet count (count/volume) 266 10*3/uL 130-400 Automated blood platelet mean volume measurement 9.7 [foz_us] 7.4-10.4 Automated blood neutrophils/100 leukocytes 66 % 42-75 Automated blood lymphocytes/100 leukocytes 19 % 12-44 Blood monocytes/100 leukocytes 10 % 0-12 Automated blood eosinophils/100 leukocytes 6 % 0-10 Automated blood basophils/100 leukocytes 1 % 0-10 Blood neutrophils automated count (number/volume) 4.6 10*3 1.8-7.8 Blood lymphocytes automated count (number/volume) 1.3 10*3 1.0-4.0 Blood monocytes automated count (number/volume) 0.7 10*3 0.0- 1.0 Automated eosinophil count 0.4 10*3/uL 0.0-0.3 Automated blood basophil count (count/volume) 0.0 10*3/uL 0.0-0.1 Comprehensive metabolic panel - 05/16/18 08:12 Serum or plasma sodium measurement (moles/volume) 141 mmol/L 135-145 Serum or plasma potassium measurement (moles/volume) 3.9 mmol/L 3.6-5.0 Serum or plasma chloride measurement (moles/volume) 103 mmol/L 98-107 Carbon dioxide 29 mmol/L 21-32 Serum or plasma anion gap determination (moles/volume) 9 mmol/L 5-14 Serum or plasma urea nitrogen measurement (mass/volume) 8 mg/dL 7-18 Serum or plasma creatinine measurement (mass/volume) 0.82 mg/dL 0.60-1.30 Serum or plasma urea nitrogen/creatinine mass ratio 10 NRG Serum or plasma creatinine measurement with calculation of estimated glomerular filtration rate > NRG Serum or plasma glucose measurement (mass/volume) 95 mg/dL 70-105 Serum or plasma calcium measurement (mass/volume) 9.2 mg/dL 8.5-10.1 Serum or plasma total bilirubin measurement (mass/volume) 0.4 mg/dL 0.1-1.0 Serum or plasma alkaline phosphatase measurement (enzymatic activity/volume) 83 U/L 40-136 Serum or plasma aspartate aminotransferase measurement (enzymatic activity/volume) 8 U/L 5-34 Serum or plasma alanine aminotransferase measurement (enzymatic activity/volume) < U/L 0-55 Serum or plasma protein measurement (mass/volume) 6.8 g/dL 6.4-8.2 Serum or plasma albumin measurement (mass/volume) 3.5 g/dL 3.2-4.5 Complete blood count (CBC) with automated white blood cell (WBC) differential - 09/04/18 14:55 Blood leukocytes automated count (number/volume) 9.7 10*3/uL 4.3-11.0 Blood erythrocytes automated count (number/volume) 5.46 10*6/uL 4.35-5.85 Venous blood hemoglobin measurement (mass/volume) 16.7 g/dL 11.5-16.0 Blood hematocrit (volume fraction) 52 % 35-52 Automated erythrocyte mean corpuscular volume 96 [foz_us] 80-99 Automated erythrocyte mean corpuscular hemoglobin (mass per erythrocyte) 31 pg 25-34 Automated erythrocyte mean corpuscular hemoglobin concentration measurement (mass/volume) 32 g/dL 32-36 Automated erythrocyte distribution width ratio 15.9 % 10.0- 14.5 Automated blood platelet count (count/volume) 282 10*3/uL 130-400 Automated blood platelet mean volume measurement 9.7 [foz_us] 7.4-10.4 Automated blood neutrophils/100 leukocytes 73 % 42-75 Automated blood lymphocytes/100 leukocytes 15 % 12-44 Blood monocytes/100 leukocytes 11 % 0-12 Automated blood eosinophils/100 leukocytes 1 % 0-10 Automated blood basophils/100 leukocytes 1 % 0-10 Blood neutrophils automated count (number/volume) 7.0 10*3 1.8-7.8 Blood lymphocytes automated count (number/volume) 1.4 10*3 1.0-4.0 Blood monocytes automated count (number/volume) 1.1 10*3 0.0- 1.0 Automated eosinophil count 0.1 10*3/uL 0.0-0.3 Automated blood basophil count (count/volume) 0.1 10*3/uL 0.0-0.1 PT panel in platelet poor plasma by coagulation assay - 09/04/18 14:55 Prothrombin time (PT) in platelet poor plasma by coagulation assay 14.0 s 12.2-14.7 INR in platelet poor plasma or blood by coagulation assay 1.1 0.8-1.4 Activated partial thromboplastin time (aPTT) in platelet poor plasma bycoagulation assay - 09/04/18 14:55 Activated partial thromboplastin time (aPTT) in platelet poor plasma bycoagulation assay 31 s 24-35 Comprehensive metabolic panel - 09/04/18 14:55 Serum or plasma sodium measurement (moles/volume) 135 mmol/L 135-145 Serum or plasma potassium measurement (moles/volume) 3.2 mmol/L 3.6-5.0 Serum or plasma chloride measurement (moles/volume) 93 mmol/L 98-107 Carbon dioxide 31 mmol/L 21-32 Serum or plasma anion gap determination (moles/volume) 11 mmol/L 5-14 Serum or plasma urea nitrogen measurement (mass/volume) 13 mg/dL 7-18 Serum or plasma creatinine measurement (mass/volume) 1.08 mg/dL 0.60-1.30 Serum or plasma urea nitrogen/creatinine mass ratio 12 NRG Serum or plasma creatinine measurement with calculation of estimated glomerular filtration rate 52 NRG Serum or plasma glucose measurement (mass/volume) 133 mg/dL 70-105 Serum or plasma calcium measurement (mass/volume) 9.3 mg/dL 8.5-10.1 Serum or plasma total bilirubin measurement (mass/volume) 0.9 mg/dL 0.1-1.0 Serum or plasma alkaline phosphatase measurement (enzymatic activity/volume) 86 U/L 40-136 Serum or plasma aspartate aminotransferase measurement (enzymatic activity/volume) 11 U/L 5-34 Serum or plasma alanine aminotransferase measurement (enzymatic activity/volume) 12 U/L 0-55 Serum or plasma protein measurement (mass/volume) 7.3 g/dL 6.4-8.2 Serum or plasma albumin measurement (mass/volume) 3.6 g/dL 3.2-4.5 CALCIUM CORRECTED 9.6 mg/dL 8.5-10.1 Magnesium - 09/04/18 14:55 Magnesium 1.9 mg/dL 1.8-2.4 Complete urinalysis with reflex to culture - 09/04/18 17:28 Urine color determination YELLOW NRG Urine clarity determination SLIGHTLY CLOUDY NRG Urine pH measurement by test strip 7 5-9 Specific gravity of urine by test strip 1.005 1.016-1.022 Urine protein assay by test strip, semi-quantitative 3+ NEGATIVE Urine glucose detection by automated test strip NEGATIVE NEGATIVE Erythrocytes detection in urine sediment by light microscopy 3+ NEGATIVE Urine ketones detection by automated test strip 1+ NEGATIVE Urine nitrite detection by test strip POSITIVE NEGATIVE Urine total bilirubin detection by test strip NEGATIVE NEGATIVE Urine urobilinogen measurement by automated test strip (mass/volume) 4 mg/dL NORMAL Urine leukocyte esterase detection by dipstick 3+ NEGATIVE Automated urine sediment erythrocyte count by microscopy (number/high power field) [HPF] NRG Automated urine sediment leukocyte count by microscopy (number/high power field) [HPF] NRG Bacteria detection in urine sediment by light microscopy LARGE NRG Squamous epithelial cells detection in urine sediment by light microscopy 10-25 NRG Crystals detection in urine sediment by light microscopy NONE NRG Casts detection in urine sediment by light microscopy NONE NRG Mucus detection in urine sediment by light microscopy NEGATIVE NRG Complete urinalysis with reflex to culture YES NRG Urine drug screening test - 09/04/18 17:28 Urine phencyclidine detection by screening method NEGATIVE NEGATIVE Urine benzodiazepines detection by screening method NEGATIVE NEGATIVE Urine cocaine detection NEGATIVE NEGATIVE Urine amphetamines detection by screening method NEGATIVE NEGATIVE Urine methamphetamine detection by screening method NEGATIVE NEGATIVE Urine cannabinoids detection by screening method NEGATIVE NEGATIVE Urine opiates detection by screening method NEGATIVE NEGATIVE Urine barbiturates detection NEGATIVE NEGATIVE Screening urine tricyclic antidepressants detection NEGATIVE NEGATIVE Urine methadone detection by screening method NEGATIVE NEGATIVE Urine oxycodone detection NEGATIVE NEGATIVE Urine propoxyphene detection NEGATIVE NEGATIVE Bacterial urine culture - 09/04/18 17:28 Bacterial urine culture [id number] NRG COLONY COUNT >100,000/ML NRG FTX;REPORTABLE ID REPORTED 09/05/18 15:05 NRG FREE TEXT ENTRY 2 SENSITIVITY REPORTED 09/06/18 09:05 NRG RML Sensitivity Panel - 09/04/18 17:28 Gentamicin susceptibility test by minimum inhibitory concentration <= NRG Trimethoprim/sulfamethoxazole susceptibility test by minimum inhibitoryconcentration <= NRG Levofloxacin susceptibility test by minimum inhibitory concentration <= NRG Ampicillin susceptibility test by minimum inhibitory concentration <= NRG Cefazolin susceptibility test by minimum inhibitory concentration <= NRG Ceftriaxone susceptibility test by minimum inhibitory concentration <= NRG Ciprofloxacin susceptibility test by minimum inhibitory concentration <= NRG Meropenem susceptibility test by minimum inhibitory concentration <= NRG Nitrofurantoin susceptibility test by minimum inhibitory concentration 32 NRG Amoxicillin and clavulanate potassium susc AKIN <= NRG Complete blood count (CBC) with automated white blood cell (WBC) differential - 09/05/18 05:28 Blood leukocytes automated count (number/volume) 8.5 10*3/uL 4.3-11.0 Blood erythrocytes automated count (number/volume) 4.97 10*6/uL 4.35-5.85 Venous blood hemoglobin measurement (mass/volume) 15.1 g/dL 11.5-16.0 Blood hematocrit (volume fraction) 49 % 35-52 Automated erythrocyte mean corpuscular volume 98 [foz_us] 80-99 Automated erythrocyte mean corpuscular hemoglobin (mass per erythrocyte) 30 pg 25-34 Automated erythrocyte mean corpuscular hemoglobin concentration measurement (mass/volume) 31 g/dL 32-36 Automated erythrocyte distribution width ratio 15.9 % 10.0- 14.5 Automated blood platelet count (count/volume) 209 10*3/uL 130-400 Automated blood platelet mean volume measurement 10.1 [foz_us] 7.4-10.4 Automated blood neutrophils/100 leukocytes 68 % 42-75 Automated blood lymphocytes/100 leukocytes 18 % 12-44 Blood monocytes/100 leukocytes 11 % 0-12 Automated blood eosinophils/100 leukocytes 2 % 0-10 Automated blood basophils/100 leukocytes 0 % 0-10 Blood neutrophils automated count (number/volume) 5.8 10*3 1.8-7.8 Blood lymphocytes automated count (number/volume) 1.5 10*3 1.0-4.0 Blood monocytes automated count (number/volume) 1.0 10*3 0.0- 1.0 Automated eosinophil count 0.2 10*3/uL 0.0-0.3 Automated blood basophil count (count/volume) 0.0 10*3/uL 0.0-0.1 Blood blood smear finding identification by light microscopy YES [facility] Whole blood basic metabolic panel - 09/05/18 05:28 Serum or plasma sodium measurement (moles/volume) 139 mmol/L 135-145 Serum or plasma potassium measurement (moles/volume) 3.7 mmol/L 3.6-5.0 Serum or plasma chloride measurement (moles/volume) 103 mmol/L 98-107 Carbon dioxide 26 mmol/L 21-32 Serum or plasma anion gap determination (moles/volume) 10 mmol/L 5-14 Serum or plasma urea nitrogen measurement (mass/volume) 8 mg/dL 7-18 Serum or plasma creatinine measurement (mass/volume) 0.75 mg/dL 0.60-1.30 Serum or plasma urea nitrogen/creatinine mass ratio [address] [facility] Serum or plasma creatinine measurement with calculation of estimated glomerular filtration rate > NRG Serum or plasma glucose measurement (mass/volume) 95 mg/dL 70-105 Serum or plasma calcium measurement (mass/volume) 8.7 mg/dL 8.5-10.1 Serum or plasma lithium measurement (moles/volume) - 09/05/18 14:38 BNP level 188.1 pg/mL <100.0 Serum or plasma troponin i.cardiac measurement (mass/volume) - 09/05/18 14:38 Serum or plasma troponin i.cardiac measurement (mass/volume) < ng/mL <0.30 Automated blood complete blood count (hemogram) panel - 09/06/18 06:18 Blood leukocytes automated count (number/volume) 7.1 10*3/uL 4.3-11.0 Blood erythrocytes automated count (number/volume) 4.85 10*6/uL 4.35-5.85 Venous blood hemoglobin measurement (mass/volume) 15.2 g/dL 11.5-16.0 Blood hematocrit (volume fraction) 47 % 35-52 Automated erythrocyte mean corpuscular volume 97 [foz_us] 80-99 Automated erythrocyte mean corpuscular hemoglobin (mass per erythrocyte) 31 pg 25-34 Automated erythrocyte mean corpuscular hemoglobin concentration measurement (mass/volume) 32 g/dL 32-36 Automated erythrocyte distribution width ratio 16.4 % 10.0- 14.5 Automated blood platelet count (count/volume) 205 10*3/uL 130-400 Automated blood platelet mean volume measurement 9.9 [foz_us] 7.4-10.4 Serum or plasma lithium measurement (moles/volume) - 09/06/18 06:27 BNP level 144.6 pg/mL <100.0 Encounters ACCT No. Visit Date/Time Discharge Status Pt. Type Provider Facility Loc./Unit Complaint [id number] 03/22/2019 15:54:00 03/22/2019 23:59:59 CLS Outpatient PRAVEENA PRIEST MD [facility] RAD SCREENING [id number] 10/27/2018 10:25:00 10/27/2018 23:59:59 CLS Preadmit PANTERA TAO APRN [facility] RAD SMOKING HX,COPD [id number] 10/06/2018 08:39:00 10/06/2018 23:59:59 CLS Outpatient PANTERA TAO COURSEWARE DEVELOPER [facility] RAD ASTHMA,COPD,PNEUMONIA [id number] 09/20/2018 15:17:00 09/20/2018 23:59:59 CLS Outpatient DILAN MARTINEZ DO [facility] RAD POSTMENOPAUSAL BLEEDING [id number] 09/20/2018 14:13:00 09/20/2018 23:59:59 CLS Preadmit PANTERA TAO COURSEWARE DEVELOPER [facility] RT ASTHMA,COPD,PNEUMONIA [id number] 09/04/2018 20:14:00 09/06/2018 16:17:00 DIS Outpatient DALILA TROY MD [facility] 4TH UTI,PNA,N/V,HYPOXIA,COPD HX OF [id number] 05/16/2018 07:56:00 05/16/2018 23:59:59 CLS Outpatient TAI KLINE COURSEWARE DEVELOPER [facility] LAB ACUTE BRONCHITIS [id number] 07/11/2017 15:07:00 07/11/2017 17:49:00 DIS Emergency SUSAN TANG COURSEWARE DEVELOPER [facility] ER FALL [id number] 05/10/2017 08:54:00 05/10/2017 23:59:59 CLS Outpatient PRAVEENA PRIEST MD [facility] RAD CHEST WALL PAIN [id number] 03/05/2017 11:15:00 03/05/2017 23:59:59 CLS Outpatient PRAVEENA PRIEST MD [facility] LAB HYPOKALEMIA, POLYDIPSIA [id number] 01/28/2017 13:34:00 01/28/2017 23:59:59 CLS Outpatient PRAVEENA PRIEST MD [facility] RAD BILATERAL CALF PAIN [id number] 08/09/2016 00:08:00 08/09/2016 23:59:59 CLS Preadmit PRAVEENA PRIEST MD [facility] SDC INFECTION [id number] 05/10/2016 11:33:00 08/08/2016 00:01:00 DIS Outpatient PRAVEENA PRIEST MD [facility] SDC INFECTION [id number] 10/08/2015 10:05:00 10/08/2015 23:59:59 CLS Outpatient PRAVEENA PRIEST MD [facility] LAB HTN,URINE INCONT,DEPRESSION,INSOMNIA [id number] 08/14/2015 13:12:00 08/14/2015 23:59:59 CLS Outpatient PRAVEENA PRIEST MD [facility] RAD SCREENING [id number] 11/07/2013 09:00:00 11/07/2013 23:59:59 CLS Outpatient PRAVEENA PRIEST MD [facility] LAB ORAL YEAST [id number] 06/06/2018 13:24:00 Document Registration [id number] 05/26/2012 08:06:00 Document Registration [id number] 12/13/2011 05:38:00 Document Registration [id number] 12/09/2011 15:38:00 Document Registration [id number] 11/08/2011 15:12:00 Document Registration [id number] 12/25/2010 13:57:00 Document Registration
--- NOTE | 2019-03-26 11:50 | NUR ---
PATIENT ARRIVES VIA WHEEL CHAIR ACCOMPANIED BY HER SPOUSE. PATIENT IS COMING FROM HER DOCTORS OFFICE REPORTABLY D/T LOW BLOOD PRESSURE.
--- NOTE | 2019-03-26 11:55 | NUR ---
ASHLEY FROM [facility] IS HERE TO PLACE PATIENT ON BIPAP AND DRAW ABG'S. BLOOD CULTURES AND LABS ARE ALSO DRAWN AT THIS TIME.
[2019-03-26 12:11] LABS: BASOPHILS # (AUTO) 0.1 10^3/uL (0.0-0.1); BASOPHILS % (AUTO) 1 % (0-10); EOSINOPHILS # (AUTO) 0.2 10^3/uL (0.0-0.3); EOSINOPHILS % (AUTO) 2 % (0-10); HEMATOCRIT 52 % (35-52); HEMOGLOBIN 16.4 G/DL (11.5-16.0); LYMPHOCYTES # (AUTO) 1.4 X 10^3 (1.0-4.0); LYMPHOCYTES % (AUTO) 16 % (12-44); MEAN CORPUSCULAR HEMOGLOBIN 30 PG (25-34); MEAN CORPUSCULAR HGB CONC 31 G/DL (32-36); MEAN CORPUSCULAR VOLUME 95 FL (80-99); MEAN PLATELET VOLUME 9.9 FL (7.4-10.4); MONOCYTES # (AUTO) 1.3 X 10^3 (0.0-1.0); MONOCYTES % (AUTO) 15 % (0-12); NEUTROPHILS # (AUTO) 5.8 X 10^3 (1.8-7.8); NEUTROPHILS % (AUTO) 66 % (42-75); PLATELET COUNT 252 10^3/uL (130-400); RED CELL DISTRIBUTION WIDTH 17.5 % (10.0-14.5); WHITE BLOOD COUNT 8.8 10^3/uL (4.3-11.0)
[2019-03-26 12:15] VITALS: BP 116/104
[2019-03-26] MEDS ORDERED: RT-ALBUTEROL/IPRATROPIUM 3 ML (DUONEB) VIAL INH ONE (12:15)
--- NOTE | 2019-03-26 12:19 | ED Respiratory ---
General Chief Complaint: Respiratory Problems Stated Complaint: LOW BP/SOA Nursing Triage Note: CAME OVER FROM DR OFFICE REPORTED HYPOTENSIVE, PT IS FOUND TO HAVE O2 SATURATIONS IN THE MID 60'S DENIES ANY PAIN Source: patient Exam Limitations: no limitations History of Present Illness Date Seen by Provider: Mar 26, 2019 Time Seen by Provider: 12:01 Initial Comments 58-year-old female who presents to the emergency room with complaints of increasing shortness of breath and malaise for the past 2 days. She reports that she had an appointment of Dr. Michel's office morning but was sent to the emergency room because her oxygen saturation and blood pressure were low. On arrival to the emergency room her oxygen saturation was in the 60s on room air. She reports she wears continuous O2 at 3 L via nasal cannula. Timing/Duration: other (2 days) Prior Episodes/Possible Cause: no prior episodes Modifying Factors: Improves With Oxygen Associated Symptoms: shortness of breath Allergies and Home Medications Allergies Coded Allergies: cefaclor (Verified Allergy, Unknown, 03/26/19) Home Medications Acetaminophen 500 Mg Tablet, 1,000 MG PO Q6H PRN for PAIN-MILD, (Reported) Albuterol Sulfate 1 Puff Puff, 2 PUFF INH Q4H PRN for SHORTNESS OF BREATH, ( Reported) Aspirin 81 Mg Tablet.dr, 81 MG PO DAILY, (Reported) Cetirizine HCl 10 Mg Tablet, 10 MG PO DAILY, (Reported) Clonazepam 1 Mg Tablet, 1 MG PO BID PRN for ANXIETY, (Reported) Escitalopram Oxalate 20 Mg Tablet, 20 MG PO DAILY, (Reported) Fesoterodine Fumarate 8 Mg Tab.er.24h, 8 MG PO HS, (Reported) Hydrochlorothiazide 25 Mg Tablet, 25 MG PO DAILY, (Reported) Menthol/Lanolin/Calamine/Znox 71 Gm Oint, TOP BID, (Reported) Montelukast Sodium 10 Mg Tablet, 10 MG PO DAILY, (Reported) Tramadol HCl 50 Mg Tablet, 50 MG PO Q4H PRN for PAIN-MODERATE, (Reported) Zolpidem Tartrate 10 Mg Tablet, 5 MG PO HS PRN for SLEEP, (Reported) TAKES 1/2 (10MG) TABLET Patient Home Medication List Home Medication List Reviewed: Yes Review of Systems Review of Systems Constitutional: see HPI; No chills, No fever; malaise Respiratory: see HPI, short of breath All Other Systems Reviewed Negative Unless Noted: Yes Past Lrafyoj-Uocgzb-Ehanuf Hx Past Med/Social Hx: Reviewed Nursing Past Med/Soc Hx Patient Social History Type Used: Cigarettes Recent Foreign Travel: No Contact w/Someone Who Travel: No Recent Infectious Disease Expo: No Recent Hopitalizations: No Immunizations Up To Date Tetanus Booster (TDap): Unknown PED Vaccines UTD: Yes Date of Pneumonia Vaccine: Sep 01, 2018 Date of Influenza Vaccine: Sep 01, 2018 Seasonal Allergies Seasonal Allergies: Yes Past Medical History Surgeries: Yes Respiratory: Yes Asthma, Pneumonia, COPD Currently Using CPAP: No Currently Using BIPAP: No Cardiac: No Hypertension Neurological: No : No Reproductive Disorders: Yes [employer] History: Menopausal Sexually Transmitted Disease: No HIV/AIDS: No Genitourinary: Yes Kidney Infection, Bladder Infection, UTI-Chronic Gastrointestinal: No Musculoskeletal: Yes (left shoulder fx and right ankle fx) Osteoporosis, Arthritis, Rheumatoid Arthritis, Fractures Endocrine: No HEENT: Yes Cataract Loss of Vision: Denies Hearing Impairment: Hard of Hearing Cancer: No Psychosocial: Yes Depression Integumentary: No Blood Disorders: No Adverse Reaction/Blood Tranf: No Family Medical History Reviewed Nursing Family Hx Bone cancer 19 MOTHER FH: breast cancer 19 MOTHER Physical Exam Vital Signs - First Documented 03/26/19 11:50 Temp 96.6 Pulse 86 Resp 22 B/P (MAP) 111/77 (88) Pulse Ox 91 O2 Delivery OxyMask O2 Flow Rate 15.00 FiO2 91 Capillary Refill : Greater Than 3 Seconds Height: 5'5.00" Weight: 257lbs. 0.0oz. 116.891818ku; 41.5 BMI Method:Stated General Appearance: WD/WN, no apparent distress Respiratory: chest non-tender, normal breath sounds, no respiratory distress, no accessory muscle use, respiratory distress, wheezing (course wheezes) Cardiovascular: normal peripheral pulses, regular rate, rhythm, no gallop, no JVD, no murmur, other (pedal edema) Gastrointestinal: normal bowel sounds, non tender, soft, no organomegaly, no pulsatile mass Extremities: normal capillary refill Neurologic/Psychiatric: alert, normal mood/affect, oriented x 3 Skin: normal color, warm/dry Focused Exam Lactate Level 03/26/19 11:55: Lactic Acid Level 2.20*H Lactic Acid Level Laboratory Tests Test 03/26/19 11:55 Lactic Acid Level 2.20 MMOL/L (0.50-2.00) *H Progress/Results/Core Measures Suspected Sepsis Recent Fever Within 48 Hours: No Infection Criteria Present: None New/Unexplained Altered Menta: No Sepsis Screen: No Definite Risk SIRS Temperature:96.6 Pulse: 86 Respiratory Rate: 22 Laboratory Tests 03/26/19 11:55: White Blood Count 8.8 Blood Pressure 111 /77 Mean: 88 03/26/19 11:55: Lactic Acid Level 2.20*H Laboratory Tests 03/26/19 11:55: Creatinine 0.93, Platelet Count 252, Total Bilirubin 0.9 Results/Orders Lab Results Laboratory Tests Test 03/26/19 11:55 03/26/19 12:09 Range/Units White Blood Count 8.8 4.3-11.0 10^3/uL Red Blood Count 5.49 4.35-5.85 10^6/uL Hemoglobin 16.4 H 11.5-16.0 G/DL Hematocrit 52 35-52 % Mean Corpuscular Volume 95 80-99 FL Mean Corpuscular Hemoglobin 30 25-34 PG Mean Corpuscular Hemoglobin Concent 31 L 32-36 G/DL Red Cell Distribution Width 17.5 H 10.0-14.5 % Platelet Count 252 130-400 10^3/uL Mean Platelet Volume 9.9 7.4-10.4 FL Neutrophils (%) (Auto) 66 42-75 % Lymphocytes (%) (Auto) 16 12-44 % Monocytes (%) (Auto) 15 H 0-12 % Eosinophils (%) (Auto) 2 0-10 % Basophils (%) (Auto) 1 0-10 % Neutrophils # (Auto) 5.8 1.8-7.8 X 10^3 Lymphocytes # (Auto) 1.4 1.0-4.0 X 10^3 Monocytes # (Auto) 1.3 H 0.0-1.0 X 10^3 Eosinophils # (Auto) 0.2 0.0-0.3 10^3/uL Basophils # (Auto) 0.1 0.0-0.1 10^3/uL Sodium Level 134 L 135-145 MMOL/L Potassium Level 3.6 3.6-5.0 MMOL/L Chloride Level 96 L 98-107 MMOL/L Carbon Dioxide Level 26 21-32 MMOL/L Anion Gap 12 5-14 MMOL/L Blood Urea Nitrogen 8 7-18 MG/DL Creatinine 0.93 0.60-1.30 MG/DL Estimat Glomerular Filtration Rate > 60 BUN/Creatinine Ratio 9 Glucose Level 95 70-105 MG/DL Lactic Acid Level 2.20 *H 0.50-2.00 MMOL/L Calcium Level 9.1 8.5-10.1 MG/DL Corrected Calcium 9.6 8.5-10.1 MG/DL Total Bilirubin 0.9 0.1-1.0 MG/DL Aspartate Amino Transf (AST/SGOT) 11 5-34 U/L Alanine Aminotransferase (ALT/SGPT) 10 0-55 U/L Alkaline Phosphatase 83 40-136 U/L B-Type Natriuretic Peptide 1223.6 H <100.0 PG/ML Total Protein 6.7 6.4-8.2 GM/DL Albumin 3.4 3.2-4.5 GM/DL Blood Gas Puncture Site L BRACHIAL Blood Gas Patient Temperature 96.6 Arterial Blood pH 7.47 H 7.37-7.43 Arterial Blood Partial Pressure CO2 39 35-45 MMHG Arterial Blood Partial Pressure O2 160 H 79-93 MMHG Arterial Blood HCO3 29 H 23-27 MMOL/L Arterial Blood Total CO2 30.1 21.0-31.0 MMOL/L Arterial Blood Oxygen Saturation 100 94-100 % Arterial Blood Base Excess 5.0 H -2.5-2.5 MMOL/L Taqueria Test YES-POS Blood Gas Ventilator Setting NO Blood Gas Inspired Oxygen 70% BIPAP My Orders Orders - STEPHY HINKLE Cbc With Automated Diff (03/26/19 12:01) Comprehensive Metabolic Panel (03/26/19 12:01) BNP (03/26/19 12:01) Blood Culture (03/26/19 12:01) Ekg Tracing (03/26/19 12:01) O2 (03/26/19 12:01) Ed Iv/Invasive Line Start (03/26/19 12:01) Monitor-Rhythm Ecg Trace Only (03/26/19 12:01) Chest 1 View, Ap/Pa Only (03/26/19 12:01) Lactic Acid Analyzer (03/26/19 12:01) Albuterol/Ipra Inhalation Soln (Duoneb I (03/26/19 12:15) Svn Small Volume Nebulizer (03/26/19 12:01) Arterial Blood Gas (03/26/19 12:09) Arterial Blood Draw (03/26/19 ) Ns Iv 1000 Ml (Sodium Chloride 0.9%) (03/26/19 12:45) Methylprednisolone Sod Succ (Solu-Medrol (03/26/19 12:45) Furosemide Injection (Lasix Injection) (03/26/19 13:30) Catheter(Urinary) Insert & Ass 15 (03/26/19 13:32) Medications Given in ED Current Medications Medications Dose Ordered Sig/Evelin Route Start Time Stop Time Status Last Admin Dose Admin Albuterol/ Ipratropium 3 ml ONCE ONCE INH 03/26/19 12:15 03/26/19 12:16 DC 03/26/19 12:15 3 ML Furosemide 80 mg ONCE ONCE IVP 03/26/19 13:30 03/26/19 13:31 DC 03/26/19 13:42 80 MG Vital Signs/I&O 03/26/19 03/26/19 03/26/19 03/26/19 11:50 11:50 12:15 13:44 Temp 96.6 Pulse 86 70 62 Resp 22 26 17 B/P (MAP) 111/77 (88) 116/86 (96) Pulse Ox 91 97 96 O2 Delivery OxyMask Room Air O2 Flow Rate 15.00 15.00 70.00 50.00 FiO2 91 Capillary Refill : Greater Than 3 Seconds Blood Pressure Mean: 88 Progress Note : Time: 13:23 Progress Note I have seen and evaluated the patient. I have reviewed her laboratory and imaging studies. She was placed on BiPAP shortly after arrival to the emergency room oxygen saturation improvement to 95-99%. We did a trial of taking off BiPAP and her oxygen saturation decreased back into the 80s. The case was discussed with Dr. Latham at this time and he recommends giving the patient 80 of Lasix one-time dose and repeat labs and admit to the hospital. The patient agrees with plan of care, plans for admission. She did request Blue catheter with her Lasix. ECG Initial ECG Impression Date: Mar 26, 2019 Initial ECG Impression Time: 11:54 Initial ECG Rate: 72 Initial ECG Rhythm: Normal Sinus Initial ECG Intervals: Normal Initial ECG Impression: Normal Initial ECG Comparisson: Unchanged Departure Communication (Admissions) Time/Spoke to Admitting Phy: 13:25 NAVIDGERS- recommends giving 80 of Lasix one-time dose IV. Admitting her for observation. Impression Primary Impression: CHF (congestive heart failure) Additional Impressions: Pleural effusion Hypoxia Disposition: 01 HOME, SELF-CARE Condition: Stable/Unchanged Admissions Decision to Admit Reason: Admit from ER (General) Decision to Admit/Date: Mar 26, 2019 Time/Decision to Admit Time: 13:58 Departure-Patient Inst. Referrals: PRAVEENA MICHEL MD (PCP/Family) Primary Care Physician STEPHY HINKLE Mar 26, 2019 12:19
[2019-03-26 12:24] LABS: ABG OXYGEN SATURATION 100 % (94-100); ABG PCO2 39 MMHG (35-45); ABG PH 7.47 (7.37-7.43); ABG PO2 160 MMHG (79-93); ABG TCO2 30.1 MMOL/L (21.0-31.0)
[2019-03-26 12:25] LABS: ALANINE AMINOTRANSFERASE 10 U/L (0-55); ALBUMIN 3.4 GM/DL (3.2-4.5); ALKALINE PHOSPHATASE 83 U/L (40-136); BILIRUBIN,TOTAL 0.9 MG/DL (0.1-1.0); BUN/CREATININE RATIO 9; CALCIUM 9.1 MG/DL (8.5-10.1); CARBON DIOXIDE 26 MMOL/L (21-32); CHLORIDE 96 MMOL/L (98-107); CREATININE SERUM 0.93 MG/DL (0.60-1.30); GFR ESTIMATED > 60; GLUCOSE 95 MG/DL (70-105); POTASSIUM 3.6 MMOL/L (3.6-5.0); SODIUM 134 MMOL/L (135-145); TOTAL PROTEIN 6.7 GM/DL (6.4-8.2)
[2019-03-26 12:28] LABS: ALLENS TEST YES-POS; INSPIRED O2 70% BIPAP; PATIENT TEMP 96.6; VENTILATOR NO
--- NOTE | 2019-03-26 12:39 | NUR ---
IVF STARTED, SITE IS POSITIONAL. MONITORING MAINTAINED.
--- NOTE | 2019-03-26 12:42 | Diagnostic Imaging Report ---
INDICATION: Hypotension and hypoxia. Frontal chest obtained at 12:30 p.m. and compared to 09/05/2018. FINDINGS: There is marked cardiomegaly. There is central vascular congestion with interstitial edema compatible with CHF. There is a [id number] right pleural effusion. There is no significant left pleural effusion. IMPRESSION: Cardiomegaly and marked central vascular congestion with interstitial edema compatible with CHF. There is a [id number] right pleural effusion. Dictated by: Dictated on workstation # [id number]
[2019-03-26] MEDS ORDERED: methylPREDNISolone 125 MG (Solu-MEDROL) VIAL IVP ONE (12:45)
[2019-03-26] MEDS ORDERED: NS IV 1000 ML 1,000 ML IV SCH (12:45)
--- NOTE | 2019-03-26 12:50 | NUR ---
VERBAL ORDER FROM STEPHY TO HOLD OFF ON THE SOLUMEDROL ADMINISTRATION
--- NOTE | 2019-03-26 12:50 | NUR ---
PATIENT HAD REQUESTED WATER, PERMISSION WAS GIVEN BY STEPHY
--- NOTE | 2019-03-26 13:17 | NUR ---
PATIENT PLACED BACK ON BIPAP AFTER REQUIRING 7 LITERS TO KEEP AT 91% PER STEPHY
[2019-03-26] MEDS ORDERED: FUROSEMIDE 40 MG/4 ML INJ (LASIX) IVP ONE (13:30)
[2019-03-26 13:44] VITALS: BP 116/86
--- NOTE | 2019-03-26 13:53 | NUR ---
CALLED ELIZABETH FOR ROOM ASSIGNMENT
--- NOTE | 2019-03-26 14:15 | NUR ---
REPORT GIVEN TO COOPER VAZQUEZ ON MED SURG FOR ROOM 425
--- NOTE | 2019-03-26 14:45 | NUR ---
PATIENT RESTING QUIETLY WITH CALL LIGHT IN REACH. DENIES NEEDS AT THIS TIME.
--- NOTE | 2019-03-26 15:00 | NUR ---
2000 mL EMPTIED FROM BORJAS CATHETER
--- NOTE | 2019-03-26 15:35 | NUR ---
TAKING PATIENT TO ROOM 425 WITH RT ASHLEY AT THIS TIME.
[2019-03-26 15:45] VITALS: BP 115/69
[2019-03-26 15:53] VITALS: BP 115/69
[2019-03-26] MEDS ORDERED: CATHETER FLUSH 10 ML SYR IV PRN (16:45)
[2019-03-26 17:01] VITALS: BP 115/69
[2019-03-26] MEDS ORDERED: RT-ALBUTEROL/IPRATROPIUM 3 ML (DUONEB) VIAL INH PRN (17:15)
[2019-03-26 19:15] VITALS: BP 131/60
[2019-03-26] MEDS: RT-ALBUTEROL/IPRATROPIUM 3 ML (DUONEB) VIAL INH SCH ×2 (19:45→22:50)
[2019-03-26] MEDS: CATHETER FLUSH 10 ML SYR IV SCH (20:15)
--- OUTSIDE RECORDS SUMMARY | 2019-03-26 22:36 | XMS REPORT | Continuity of Care Document ---
Author Organization Unknown Address Unknown Allergies Active Description Code Type Severity Reaction Onset Reported/Identified Relationship to Patient Clinical Status Yes cefaclor [id number] Drug Allergy Unknown N/A 03/26/2019 Medications There is no data. Problems Date Dx Coded Attending Type Code Diagnosis Diagnosed By 12/13/2011 Ot 216.6 BENIGN JULISSA SKIN ARM 08/14/2015 Ot 715.34 08/14/2015 Ot 786.2 08/14/2015 Ot 727.42 08/14/2015 Ot V72.63 08/14/2015 Ot V74.8 08/14/2015 Ot 721.2 08/14/2015 Ot 721.42 08/14/2015 Ot 721.8 08/14/2015 Ot 722.52 08/14/2015 ZAYDA OLIVAREZ, PRAVEENA R Ot 112.0 08/18/2015 ZAYDA LOIVAREZ, PRAVEENA R Ot Z12.31 09/01/2015 ZAYDA OLIVAREZ, [...] R Ot G47.00 INSOMNIA, UNSPECIFIED 01/28/2017 PRAVEENA PRIEST MD R Ot I10 ESSENTIAL (PRIMARY) HYPERTENSION [...] IN 07/11/2017 SUSAN TANG APRN Ot Z79.82 SODA FLAKER (CURRENT) USE OF ASPIRIN 07/15/2017 SUSAN TANG APRN Ot K80.20 CALCULUS OF GALLBLADDER W/O CHOLECYSTITI 07/15/2017 SUSAN TANG APRN Ot N64.4 MASTODYNIA 07/15/2017 SUSAN TANG APRN Ot S20.211A CONTUSION OF RIGHT FRONT WALL OF THORAX, 07/15/2017 SUSAN TANG APRN Ot W17.89XA OTHER FALL FROM ONE LEVEL TO ANOTHER, IN 07/15/2017 SUSAN TANG APRN Ot Z79.82 CORRECTION (CURRENT) USE OF ASPIRIN 05/16/2018 PRAVEENA PRIEST [...] PROCEDURE AND TREATMENT NOT CARRIED OUT, 05/16/2018 PRVAEENA PRIEST MD Ot M79.661 PAIN IN RIGHT [...] ADULT 09/06/2018 DALILA TROY MD, Ot Z79.82 SODA FLAKER (CURRENT) USE OF ASPIRIN 09/06/2018 DALILA TROY MD, Ot Z79.899 OTHER CORRECTION (CURRENT) DRUG THERAPY 09/06/2018 DALILA TROY MD, [...] TRACT INFECTION, SITE NOT SPECIF 09/06/2018 DALILA TRYO MD, Ot R07.9 CHEST PAIN, UNSPECIFIED 09/06/2018 DALILA TROY MD Ot R32 UNSPECIFIED URINARY INCONTINENCE 09/06/2018 DALILA TROY MD Ot R53.1 WEAKNESS 09/06/2018 DALILA TROY MD, Ot Z68.41 BODY MASS INDEX (BMI) 40.0-44.9, ADULT 09/06/2018 DALILA TROY MD, Ot Z79.82 SODA FLAKER (CURRENT) USE OF ASPIRIN 09/06/2018 DALILA TROY MD, Ot Z79.899 OTHER SODA FLAKER (CURRENT) DRUG THERAPY 09/06/2018 DALILA TROY MD, Ot Z99.81 DEPENDENCE ON SUPPLEMENTAL OXYGEN 10/04/2018 DILAN MARTINEZ DO S Ot N85.8 OTHER SPECIFIED NONINFLAMMATORY DISORDER 10/04/2018 FENECH DO, DILAN S Ot N95.0 POSTMENOPAUSAL BLEEDING 10/04/2018 FENECH DO, DILAN S Ot N85.8 OTHER SPECIFIED NONINFLAMMATORY DISORDER 10/04/2018 FENECH DO, DILAN S Ot N95.0 POSTMENOPAUSAL BLEEDING 10/09/2018 PANTERA TAO RADIATOR TESTER Ot G47.10 HYPERSOMNIA, UNSPECIFIED 10/09/2018 PANTERA TAO RADIATOR TESTER Ot G47.50 PARASOMNIA, UNSPECIFIED 10/09/2018 EMELIA TAOINE E RADIATOR TESTER Ot J18.9 PNEUMONIA, UNSPECIFIED ORGANISM 10/09/2018 EMELIA TAOINE E RADIATOR TESTER Ot J44.9 CHRONIC OBSTRUCTIVE PULMONARY DISEASE, U 10/19/2018 FENECH DO, DILAN S Ot N85.8 OTHER SPECIFIED NONINFLAMMATORY DISORDER 10/19/2018 FENECH DO, DILAN S Ot N95.0 POSTMENOPAUSAL BLEEDING 10/23/2018 PANTERA TAO RADIATOR TESTER Ot G47.10 HYPERSOMNIA, UNSPECIFIED 10/23/2018 PANTERA TAO RADIATOR TESTER Ot G47.50 PARASOMNIA, UNSPECIFIED 10/23/2018 PANTERA TAO RADIATOR TESTER Ot J18.9 PNEUMONIA, UNSPECIFIED ORGANISM 10/23/2018 PANTERA TAO RADIATOR TESTER Ot J44.9 CHRONIC OBSTRUCTIVE PULMONARY DISEASE, U 03/23/2019 ZAYDA OLIVAREZ, PRAVEENA Wolfe Ot Z12.31 ENCNTR SCREEN MAMMOGRAM FOR MALIGNANT NE 03/26/2019 ZAYDA OLIVAREZ, PRAVEENA Wolfe Ot Z53.9 PROCEDURE AND TREATMENT NOT CARRIED OUT, Procedures There is no data. Results Test [...] culture - 09/04/18 17:28 Bacterial urine culture [id number] NRG COLONY COUNT >100,000/ML NRG FTX;REPORTABLE ID [...] smear finding identification by light microscopy YES [facility] Whole blood basic metabolic panel - 09/05/18 [...] or plasma urea nitrogen/creatinine mass ratio 11 NRG Serum or plasma creatinine measurement with [...] 09/06/18 06:27 BNP level 144.6 pg/mL <100.0 Complete blood count (CBC) with automated white blood cell (WBC) differential - 03/26/19 11:55 Blood leukocytes automated count (number/volume) 8.8 10*3/uL 4.3-11.0 Blood erythrocytes automated count (number/volume) 5.49 10*6/uL 4.35-5.85 Venous blood hemoglobin measurement (mass/volume) 16.4 g/dL 11.5-16.0 Blood hematocrit (volume fraction) 52 % 35-52 Automated erythrocyte mean corpuscular volume 95 [foz_us] 80-99 Automated erythrocyte mean corpuscular hemoglobin (mass per erythrocyte) 30 pg 25-34 Automated erythrocyte mean corpuscular hemoglobin concentration measurement (mass/volume) 31 g/dL 32-36 Automated erythrocyte distribution width ratio 17.5 % 10.0- 14.5 Automated blood platelet count (count/volume) 252 10*3/uL 130-400 Automated blood platelet mean volume measurement 9.9 [foz_us] 7.4-10.4 Automated blood neutrophils/100 leukocytes 66 % 42-75 Automated blood lymphocytes/100 leukocytes 16 % 12-44 Blood monocytes/100 leukocytes 15 % 0-12 Automated blood eosinophils/100 leukocytes 2 % 0-10 Automated blood basophils/100 leukocytes 1 % 0-10 Blood neutrophils automated count (number/volume) 5.8 10*3 1.8-7.8 Blood lymphocytes automated count (number/volume) 1.4 10*3 1.0-4.0 Blood monocytes automated count (number/volume) 1.3 10*3 0.0- 1.0 Automated eosinophil count 0.2 10*3/uL 0.0-0.3 Automated blood basophil count (count/volume) 0.1 10*3/uL 0.0-0.1 Comprehensive metabolic panel - 03/26/19 11:55 Serum or plasma sodium measurement (moles/volume) 134 mmol/L 135-145 Serum or plasma potassium measurement (moles/volume) 3.6 mmol/L 3.6-5.0 Serum or plasma chloride measurement (moles/volume) 96 mmol/L 98-107 Carbon dioxide 26 mmol/L 21-32 Serum or plasma anion gap determination (moles/volume) 12 mmol/L 5-14 Serum or plasma urea nitrogen measurement (mass/volume) 8 mg/dL 7-18 Serum or plasma creatinine measurement (mass/volume) 0.93 mg/dL 0.60-1.30 Serum or plasma urea nitrogen/creatinine mass ratio 9 NRG Serum or plasma creatinine measurement with calculation of estimated glomerular filtration rate > NRG Serum or plasma glucose measurement (mass/volume) 95 mg/dL 70-105 Serum or plasma calcium measurement (mass/volume) 9.1 mg/dL 8.5-10.1 Serum or plasma total bilirubin measurement (mass/volume) 0.9 mg/dL 0.1-1.0 Serum or plasma alkaline phosphatase measurement (enzymatic activity/volume) 83 U/L 40-136 Serum or plasma aspartate aminotransferase measurement (enzymatic activity/volume) 11 U/L 5-34 Serum or plasma alanine aminotransferase measurement (enzymatic activity/volume) 10 U/L 0-55 Serum or plasma protein measurement (mass/volume) 6.7 g/dL 6.4-8.2 Serum or plasma albumin measurement (mass/volume) 3.4 g/dL 3.2-4.5 CALCIUM CORRECTED 9.6 mg/dL 8.5-10.1 Blood lactic acid measurement (moles/volume) - 03/26/19 11:55 Blood lactic acid measurement (moles/volume) 2.20 mmol/L 0.50- 2.00 Serum or plasma lithium measurement (moles/volume) - 03/26/19 11:55 BNP level 1223.6 pg/mL <100.0 Arterial blood gas measurement - 03/26/19 12:09 Blood pCO2 39 mm[Hg] 35-45 Blood pO2 160 mm[Hg] 79-93 Arterial blood bicarbonate measurement (moles/volume) 29 mmol/L 23-27 Arterial blood base excess by calculation 5.0 mmol/L -2.5-2.5 Arterial blood oxygen saturation measurement 100 % 94-100 * Inhaled oxygen flow rate 70% BIPAP NRG Arterial blood pH measurement with patient temperature correction 7.47 7.37-7.43 Arterial blood carbon dioxide, total measurement (moles/volume) 30.1 mmol/L 21.0-31.0 Body site L BRACHIAL NRG Assessment of wrist artery patency prior to arterial puncture YES-POS NRG Setting of ventilation mode NO NRG Measurement of body temperature 96.6 NRG Serum or plasma lactate measurement (moles/volume) - 03/26/19 14:30 Serum or plasma lactate measurement (moles/volume) 1.08 mmol/L 0.50-2.00 Encounters ACCT No. Visit Date/Time Discharge Status Pt. Type Provider Facility Loc./Unit Complaint [id number] 03/22/2019 15:54:00 03/22/2019 23:59:59 CLS Outpatient ZAYDA OLIVAREZ, PRAVEENA [facility] RAD SCREENING [id number] 10/27/2018 10:25:00 10/27/2018 23:59:59 CLS Preadmit PANTERA TAO RADIATOR TESTER [facility] RAD SMOKING HX,COPD [id number] 10/06/2018 08:39:00 10/06/2018 23:59:59 CLS Outpatient PANTERA TAO RADIATOR TESTER [facility] RAD ASTHMA,COPD,PNEUMONIA [id number] 09/20/2018 15:17:00 09/20/2018 23:59:59 CLS Outpatient DILAN MARTINEZ DO S [facility] RAD POSTMENOPAUSAL BLEEDING [id number] 09/20/2018 14:13:00 09/20/2018 23:59:59 CLS Preadmit PANTERA TAO RADIATOR TESTER [facility] RT ASTHMA,COPD,PNEUMONIA [id number] 09/04/2018 20:14:00 09/06/2018 16:17:00 DIS Outpatient SYDNI OLIVAREZ, DALILA Medina [facility] 4TH UTI,PNA,N/V,HYPOXIA,COPD HX OF [id number] 05/16/2018 07:56:00 05/16/2018 23:59:59 CLS Outpatient TAI KLINE [facility] TE[facility] LAB ACUTE BRONCHITIS [id number] 07/11/2017 15:07:00 07/11/2017 17:49:00 DIS Emergency SUSAN TANG RADI[facility] TE[facility] ER FALL [id number] 05/10/2017 08:54:00 05/10/2017 23:59:59 CLS Outpatient PRAVEENA PRIEST MD [facility] RAD CHEST WALL PAIN [id number] 03/05/2017 11:15:00 03/05/2017 23:59:59 CLS Outpatient PRAVEENA PRIEST MD [facility] LAB HYPOKALEMIA, POLYDIPSIA [id number] 01/28/2017 13:34:00 01/28/2017 23:59:59 CLS Outpatient PRAVEENA PRIEST MD [facility] RAD BILATERAL CALF PAIN [id number] 08/09/2016 00:08:00 08/09/2016 23:59:59 CLS Preadmit PRAVEENA PRIEST MD [facility] INFECTION [id number] 05/10/2016 11:33:00 08/08/2016 00:01:00 DIS Outpatient PRAVEENA PRIEST MD [facility] INFECTION [id number] 10/08/2015 10:05:00 10/08/2015 23:59:59 CLS Outpatient PRAVEENA PRIEST MD [facility] LAB HTN,URINE INCONT,DEPRESSION,INSOMNIA [id number] 08/14/2015 13:12:00 08/14/2015 23:59:59 CLS Outpatient PRAVEENA PRIEST MD [facility] RAD SCREENING [id number] 11/07/2013 09:00:00 11/07/2013 23:59:59 CLS Outpatient PRAVEENA PRIEST MD [facility] LAB ORAL YEAST [id number] 03/26/2019 11:40:00 ACT Emergency STEPHY HINKLE [facility] ER LOW BP/SOA [id number] 06/06/2018 13:24:00 Document Registration [id number] 05/26/2012 08:06:00 Document Registration [id number] 12/13/2011 05:38:00 Document Registration [id number] 12/09/2011 15:38:00 Document Registration [id number] 11/08/2011 15:12:00 Document Registration [id number] 12/25/2010 13:57:00 Document Registration
[2019-03-27 00:29] VITALS: BP 118/64
[2019-03-27] MEDS: RT-ALBUTEROL/IPRATROPIUM 3 ML (DUONEB) VIAL INH SCH ×6 (02:13→23:02)
[2019-03-27 03:40] VITALS: BP 114/66
[2019-03-27] MEDS: CATHETER FLUSH 10 ML SYR IV SCH ×3 (06:00→20:41)
[2019-03-27 06:23] LABS: BASOPHILS % (AUTO) 0 % (0-10); EOSINOPHILS # (AUTO) 0.2 10^3/uL (0.0-0.3); EOSINOPHILS % (AUTO) 3 % (0-10); HEMATOCRIT 50 % (35-52); LYMPHOCYTES # (AUTO) 0.8 X 10^3 (1.0-4.0); LYMPHOCYTES % (AUTO) 11 % (12-44); MEAN CORPUSCULAR HEMOGLOBIN 29 PG (25-34); MEAN CORPUSCULAR HGB CONC 30 G/DL (32-36); MEAN CORPUSCULAR VOLUME 98 FL (80-99); MEAN PLATELET VOLUME 10.2 FL (7.4-10.4); MONOCYTES # (AUTO) 0.9 X 10^3 (0.0-1.0); MONOCYTES % (AUTO) 12 % (0-12); NEUTROPHILS # (AUTO) 5.4 X 10^3 (1.8-7.8); NEUTROPHILS % (AUTO) 74 % (42-75); PLATELET COUNT 232 10^3/uL (130-400); RED CELL DISTRIBUTION WIDTH 17.6 % (10.0-14.5); WHITE BLOOD COUNT 7.4 10^3/uL (4.3-11.0)
[2019-03-27 06:45] LABS: ALANINE AMINOTRANSFERASE 8 U/L (0-55); ALBUMIN 2.9 GM/DL (3.2-4.5); ALKALINE PHOSPHATASE 69 U/L (40-136); BILIRUBIN,TOTAL 0.6 MG/DL (0.1-1.0); BUN/CREATININE RATIO 10; CALCIUM 9.1 MG/DL (8.5-10.1); CARBON DIOXIDE 33 MMOL/L (21-32); CHLORIDE 97 MMOL/L (98-107); CREATININE SERUM 0.79 MG/DL (0.60-1.30); GFR ESTIMATED > 60; GLUCOSE 87 MG/DL (70-105); POTASSIUM 3.4 MMOL/L (3.6-5.0); SODIUM 141 MMOL/L (135-145)
[2019-03-27 08:00] VITALS: BP 109/69
[2019-03-27] MEDS ORDERED: PANT40TA3 PO (08:29)
[2019-03-27] MEDS ORDERED: HYDR-3816 PO (08:29)
[2019-03-27] MEDS ORDERED: SOLI10TA7 PO (08:29)
[2019-03-27] MEDS ORDERED: FLUT16SP22 NS (08:29)
--- NOTE | 2019-03-27 08:30 | NUR ---
WENT OVER THE EXT MED HX WITH THE PATIENT AND SHE VERIFIED HOW SHE TAKES THEM.
--- NOTE | 2019-03-27 09:21 | NUR ---
BIPAP ALARMING THIS RN READJUSTED MASK AND CHECKED LINE -- CONTINUES TO BEEP RT WAS CALLED AND ADVISED
[2019-03-27 12:00] VITALS: BP 120/70
--- NOTE | 2019-03-27 16:02 | History & Physical-Hospitalist ---
History of Present Illness HPI/Chief Complaint The patient is a 58-year-old white female who was on a scheduled visit to Dr. Michel's office yesterday. She was found to be dyspneic and hypoxic and was sent to the emergency room for further workup. She reported that she had noted this for about 2 days. She is morbidly obese and states that she walks only short distances. This appears to be less than 50 feet. Until today she had been an active smoker. There is no past history of heart attack or other part disorders. Workup in the emergency room showed an elevated BNP and a chest x- ray consistent with Date Seen 03/27/19 Time Seen by a Provider: 15:58 Attending Physician Robin Troy MD PCP Silvestre Michel MD Referring Physician Date of Admission Mar 26, 2019 at 14:16 Home Medications & Allergies Home Medications Reviewed patient Home Medication Reconciliation performed by pharmacy medication reconciliations computer service technician and/or nursing. Patients Allergies have been reviewed. Allergies Allergies Coded Allergies cefaclor (Verified Allergy, Unknown, 03/26/19) Past Irvybac-Bqirai-Yzsrhr Hx Past Med/Social Hx: Reviewed Nursing Past Med/Soc Hx Patient Social History Alcohol Use: Denies Use Recreational Drug Use: No Type Used: Cigarettes Recent Foreign Travel: No Contact w/other who traveled: No Recent Hopitalizations: No Recent Infectious Disease Expo: No Immunizations Up To Date Tetanus Booster (TDap): Unknown Pediatric: Yes Date of Pneumonia Vaccine: Sep 01, 2018 Date of Influenza Vaccine: Sep 01, 2018 Seasonal Allergies Seasonal Allergies: Yes Past Medical History Currently Using CPAP: No Currently Using BIPAP: No Cardiac: Hypertension : No Reproductive: Yes Sexually Transmitted Disease: No HIV/AIDS: No Menopausal Genitourinary: Kidney Infection, Bladder Infection, UTI-Chronic Musculoskeletal: Osteoporosis, Arthritis, Rheumatoid Arthritis, Fractures HEENT: Cataract Loss of Vision: Denies Hearing Impairment: Hard of Hearing Psychosocial: Depression History of Blood Disorders: No Adverse Reaction to Blood Gasca: No Family History Reviewed Nursing Family Hx Bone cancer 19 MOTHER FH: breast cancer 19 MOTHER Review of Systems Constitutional: see HPI EENTM: no symptoms reported Respiratory: dyspnea on exertion Cardiovascular: no symptoms reported Gastrointestinal: no symptoms reported Genitourinary: no symptoms reported Musculoskeletal: no symptoms reported Skin: no symptoms reported Psychiatric/Neurological: No Symptoms Reported Physical Exam Physical Exam Vital Signs Vital Signs - First Documented 03/26/19 11:50 Temp 96.6 Pulse 86 Resp 22 B/P (MAP) 111/77 (88) Pulse Ox 91 O2 Delivery OxyMask O2 Flow Rate 15.00 FiO2 91 Capillary Refill : Less Than 3 Seconds Height, Weight, BMI Height: 5'5.00" Weight: 287lbs. 6.0oz. 130.455895sy; 48.8 BMI Method:Stated General Appearance: Mild Distress Eyes: Bilateral Eye Normal Inspection HEENT: Normal ENT Inspection Neck: Full Range of Motion Respiratory: Other (she is morbidly obese with a barrel chest. Heart breath sounds are poorly heard) Gastrointestinal: Normal Bowel Sounds Comments There is one plus pedal edema Results Results/Procedures Labs Laboratory Tests 03/26/19 11:55 03/27/19 06:00 Patient resulted labs reviewed. Assessment/Plan Admission Diagnosis 1.hypoxia 2.chest x-ray findings of congestive heart failure. 3.tobaccoism. 4.morbid obesity Admission Status: Observation Clinical Quality Measures DVT/VTE Risk/Contraindication: Risk Factor Score Per Nursin RFS Level Per Nursing on Admit: 4+=Very High ROBIN TROY MD Mar 27, 2019 16:02
[2019-03-27 16:10] VITALS: BP 109/65
--- NOTE | 2019-03-27 16:24 | Consultation-Cardiology ---
HPI-Cardiology Cardiology Consultation Date of Consultation 03/27/19 Date of Admission Time Seen by Provider: 15:58 Indication: Elevated BNP HPI Patient is a 58 year old female with morbid obesity, COPD with suspected MICHELLE, chronic back pain, tobaccoism. Presented to the ER with complaints of increased dyspnea over the past 2 days. Found to be hypotensive and hypoxemic with O2 in the 60's on arrival. Denies any chest pain. Reports dyspnea is much improved. Currently using high flow NC. Home Medications & Allergies Allergies: Coded Allergies: cefaclor (Verified Allergy, Unknown, 03/26/19) Home Medication List Reviewed: Yes CFL-Soowod-Uagaxv Hx Patient Social History Alcohol Use: Denies Use Recreational Drug Use: No Type Used: Cigarettes Recent Foreign Travel: No Recent Infectious Disease Expo: No Recent Hopitalizations: No Immunizations Up To Date Tetanus Booster (TDap): Unknown Date of Pneumonia Vaccine: Sep 01, 2018 Date of Influenza Vaccine: Sep 01, 2018 Past Medical History morbid obesity COPD Tobaccoism Chronic back pain Family Medical History Family History: Bone cancer 19 MOTHER FH: breast cancer 19 MOTHER Review of Systems-General Review of Systems Constitutional: see HPI, dizziness; No fever, No malaise, No weakness EENTM: no symptoms reported Respiratory: dyspnea on exertion; No orthopnea; short of breath; No wheezing Cardiovascular: no symptoms reported Gastrointestinal: no symptoms reported Genitourinary: no symptoms reported : No Musculoskeletal: no symptoms reported Skin: no symptoms reported Psychiatric/Neurological: No Symptoms Reported All Other Systems Reviewed Negative Unless Noted: Yes Reviewed Test Results Reviewed Test Results Lab Laboratory Tests 03/27/19 06:00: White Blood Count 7.4, Red Blood Count 5.12, Hemoglobin 15.0, Hematocrit 50, Mean Corpuscular Volume 98, Mean Corpuscular Hemoglobin 29, Mean Corpuscular Hemoglobin Concent 30L, Red Cell Distribution Width 17.6H, Platelet Count 232, Mean Platelet Volume 10.2, Neutrophils (%) (Auto) 74, Lymphocytes (%) (Auto) 11L , Monocytes (%) (Auto) 12, Eosinophils (%) (Auto) 3, Basophils (%) (Auto) 0, Neutrophils # (Auto) 5.4, Lymphocytes # (Auto) 0.8L, Monocytes # (Auto) 0.9, Eo sinophils # (Auto) 0.2, Basophils # (Auto) 0.0, Sodium Level 141, Potassium Level 3.4L, Chloride Level 97L, Carbon Dioxide Level 33H, Anion Gap 11, Blood Urea Nitrogen 8, Creatinine 0.79, Estimat Glomerular Filtration Rate > 60, BUN/Creatinine Ratio 10, Glucose Level 87, Calcium Level 9.1, Corrected Calcium 10.0, Total Bilirubin 0.6, Aspartate Amino Transf (AST/SGOT) 16, Alanine Aminotransferase (ALT/SGPT) 8, Alkaline Phosphatase 69, B-Type Natriuretic Peptide 439.2H, Total Protein 6.0L, Albumin 2.9L Physical Exam Physical Exam Vital Signs Vital Signs - First Documented 03/26/19 11:50 Temp 96.6 Pulse 86 Resp 22 B/P (MAP) 111/77 (88) Pulse Ox 91 O2 Delivery OxyMask O2 Flow Rate 15.00 FiO2 91 Capillary Refill : Less Than 3 Seconds Height, Weight, BMI Height: 5'5.00" Weight: 287lbs. 6.0oz. 130.907995jh; 48.8 BMI Method:Stated General Appearance: No Apparent Distress, WD/WN, Mild Distress Eyes: Bilateral Eye Normal Inspection HEENT: PERRL/EOMI, Normal ENT Inspection Neck: Full Range of Motion, Normal Inspection, Non Tender; No Carotid Bruit Respiratory: Chest Non Tender, No Accessory Muscle Use, No Respiratory Distress, Other (diminished) Cardiovascular: Regular Rate, Rhythm, No Edema, No Gallop, No JVD, No Murmur, Normal Peripheral Pulses Gastrointestinal: Normal Bowel Sounds, Soft Rectal: Deferred Back: No CVA Tenderness Extremity: Non Tender, No Calf Tenderness Neurologic/Psychiatric: Alert, Oriented x3 A/P-Cardiology Admission Diagnosis Hypoxemia, AE COPD Morbid obesity Right pleural effusion Elevated BNP Tobaccoism Assessment/Plan AE COPD- patient presented to ER with hypoxemia with 02 in the 60's. Currently on O2 via high flow NC. Continue to monitor. Morbid obesity Elevated BNP- 2D Echo done August 2018 revealed diastolic dysfunction with EF 55-65%. Continue to diurese and continue to monitor. Small to moderate right pleural effusion, continue to diurese and continue to monitor. Tobaccoism Chronic back pain. Thank you for allowing us to participate in the management of Ms. Christopher. This is Maryam Gómez PA-C, as a scribe for Dr. Dickinson. Clinical Quality Measures DVT/VTE Risk/Contraindication: Risk Factor Score Per Nursin RFS Level Per Nursing on Admit: 4+=Very High MARYAM SHAW Mar 27, 2019 16:24
--- NOTE | 2019-03-27 16:35 | Consultation-Cardiology ---
HPI-Cardiology Cardiology Consultation Date of Consultation 03/27/19 Date of Admission Time Seen by Provider: 15:58 Indication: Elevated BNP HPI Patient is a 58 year old female with morbid obesity, COPD with suspected MICHELLE, chronic back pain, tobaccoism. Presented to the ER with complaints of increased dyspnea over the past 2 days. Found to be hypotensive and hypoxemic with O2 in the 60's on arrival. Denies any chest pain. Reports dyspnea is much improved. Currently using high flow NC. Home Medications & Allergies Allergies: Coded Allergies: cefaclor (Verified Allergy, Unknown, 03/26/19) Home Medication List Reviewed: Yes XZX-Gducps-Hfngvq Hx Patient Social History Marital Status: Alcohol Use: Denies Use Recreational Drug Use: No Type Used: Cigarettes Recent Foreign Travel: No Recent Infectious Disease Expo: No Recent Hopitalizations: No Immunizations Up To Date Tetanus Booster (TDap): Unknown Date of Pneumonia Vaccine: Sep 01, 2018 Date of Influenza Vaccine: Sep 01, 2018 Past Medical History morbid obesity COPD Tobaccoism Chronic back pain Family Medical History Family History: Bone cancer 19 MOTHER FH: breast cancer 19 MOTHER Review of Systems-General Review of Systems Constitutional: see HPI, dizziness; No fever, No malaise, No weakness EENTM: no symptoms reported Respiratory: dyspnea on exertion; No orthopnea; short of breath; No wheezing Cardiovascular: no symptoms reported Gastrointestinal: no symptoms reported Genitourinary: no symptoms reported : No Musculoskeletal: no symptoms reported Skin: no symptoms reported Psychiatric/Neurological: No Symptoms Reported All Other Systems Reviewed Negative Unless Noted: Yes Reviewed Test Results Reviewed Test Results Lab Laboratory Tests Test 03/27/19 06:00 Range/Units White Blood Count 7.4 4.3-11.0 10^3/uL Red Blood Count 5.12 4.35-5.85 10^6/uL Hemoglobin 15.0 11.5-16.0 G/DL Hematocrit 50 35-52 % Mean Corpuscular Volume 98 80-99 FL Mean Corpuscular Hemoglobin 29 25-34 PG Mean Corpuscular Hemoglobin Concent 30 L 32-36 G/DL Red Cell Distribution Width 17.6 H 10.0-14.5 % Platelet Count 232 130-400 10^3/uL Mean Platelet Volume 10.2 7.4-10.4 FL Neutrophils (%) (Auto) 74 42-75 % Lymphocytes (%) (Auto) 11 L 12-44 % Monocytes (%) (Auto) 12 0-12 % Eosinophils (%) (Auto) 3 0-10 % Basophils (%) (Auto) 0 0-10 % Neutrophils # (Auto) 5.4 1.8-7.8 X 10^3 Lymphocytes # (Auto) 0.8 L 1.0-4.0 X 10^3 Monocytes # (Auto) 0.9 0.0-1.0 X 10^3 Eosinophils # (Auto) 0.2 0.0-0.3 10^3/uL Basophils # (Auto) 0.0 0.0-0.1 10^3/uL Sodium Level 141 135-145 MMOL/L Potassium Level 3.4 L 3.6-5.0 MMOL/L Chloride Level 97 L 98-107 MMOL/L Carbon Dioxide Level 33 H 21-32 MMOL/L Anion Gap 11 5-14 MMOL/L Blood Urea Nitrogen 8 7-18 MG/DL Creatinine 0.79 0.60-1.30 MG/DL Estimat Glomerular Filtration Rate > 60 BUN/Creatinine Ratio 10 Glucose Level 87 70-105 MG/DL Calcium Level 9.1 8.5-10.1 MG/DL Corrected Calcium 10.0 8.5-10.1 MG/DL Total Bilirubin 0.6 0.1-1.0 MG/DL Aspartate Amino Transf (AST/SGOT) 16 5-34 U/L Alanine Aminotransferase (ALT/SGPT) 8 0-55 U/L Alkaline Phosphatase 69 40-136 U/L B-Type Natriuretic Peptide 439.2 H <100.0 PG/ML Total Protein 6.0 L 6.4-8.2 GM/DL Albumin 2.9 L 3.2-4.5 GM/DL Physical Exam Physical Exam Vital Signs Vital Signs - First Documented 03/26/19 11:50 Temp 96.6 Pulse 86 Resp 22 B/P (MAP) 111/77 (88) Pulse Ox 91 O2 Delivery OxyMask O2 Flow Rate 15.00 FiO2 91 Capillary Refill : Less Than 3 Seconds Height, Weight, BMI Height: 5'5.00" Weight: 287lbs. 6.0oz. 130.930952pc; 48.8 BMI Method:Stated General Appearance: No Apparent Distress, WD/WN, Mild Distress Eyes: Bilateral Eye Normal Inspection HEENT: PERRL/EOMI, Normal ENT Inspection Neck: Full Range of Motion, Normal Inspection, Non Tender; No Carotid Bruit Respiratory: Chest Non Tender, No Accessory Muscle Use, No Respiratory Distress, Other (diminished) Cardiovascular: Regular Rate, Rhythm, No Edema, No Gallop, No JVD, No Murmur, Normal Peripheral Pulses Gastrointestinal: Normal Bowel Sounds, Soft Rectal: Deferred Back: No CVA Tenderness Extremity: Non Tender, No Calf Tenderness Neurologic/Psychiatric: Alert, Oriented x3 A/P-Cardiology Admission Diagnosis Hypoxemia, AE COPD Morbid obesity Right pleural effusion Elevated BNP Tobaccoism Assessment/Plan AE COPD- patient presented to ER with hypoxemia with 02 in the 60's. Currently on O2 via high flow NC. Continue to monitor. Morbid obesity Elevated BNP- 2D Echo done August 2018 revealed diastolic dysfunction with EF 55-65%. Continue to diurese and continue to monitor. Small to moderate right pleural effusion, continue to diurese and continue to monitor. Tobaccoism Chronic back pain. Clinical Quality Measures DVT/VTE Risk/Contraindication: Risk Factor Score Per Nursin RFS Level Per Nursing on Admit: 4+=Very High SAMANTHA ALLISON MD Mar 27, 2019 16:35
[2019-03-27] MEDS: FUROSEMIDE 40 MG/4 ML INJ (LASIX) IVP SCH (17:42)
[2019-03-27 19:25] VITALS: BP 116/55
[2019-03-28 00:38] VITALS: BP 98/60
[2019-03-28] MEDS: RT-ALBUTEROL/IPRATROPIUM 3 ML (DUONEB) VIAL INH SCH ×3 (02:22→11:01)
[2019-03-28 04:30] VITALS: BP 98/54
[2019-03-28] MEDS: FUROSEMIDE 40 MG/4 ML INJ (LASIX) IVP SCH (06:10)
[2019-03-28] MEDS: CATHETER FLUSH 10 ML SYR IV SCH (06:10)
[2019-03-28] MEDS ORDERED: KCL 20 MEQ TAB (K-DUR) PO SCH (07:00)
[2019-03-28 08:00] VITALS: BP 148/78
--- NOTE | 2019-03-28 11:09 | Cardiology Progress Note ---
Subjective Date Seen by Provider: Mar 28, 2019 Time Seen by Provider: 11:07 Subjective/Events-last exam Patient is sitting up in chair, states dyspnea has improved some. Denies any chest pain or dizziness. Focused Exam Lactate Level 03/26/19 11:55: Lactic Acid Level 2.20*H 03/26/19 14:30: Lactic Acid Level 1.08 Objective-Cardiology Exam Last Set of Vital Signs Vital Signs 03/26/19 03/28/19 03/28/19 17:01 08:00 11:03 Temp 98.1 Pulse 69 Resp 22 B/P (MAP) 148/78 (101) Pulse Ox 94 O2 Delivery High Flow N/C O2 Flow Rate 10.00 FiO2 50 Capillary Refill : Less Than 3 Seconds I&O Intake and Output 03/28/19 00:00 Intake Total 2070 ml Output Total 3450 ml Balance -1380 ml Intake Oral 2070 ml Output Urine Total 3450 ml # Bowel Movements 1 General: Alert, Oriented X3, Cooperative HEENT: Atraumatic, PERRLA Neck: Supple, No JVD, No Thyromegaly Lungs: Other (diminishes bs bibasilarly) Heart: Regular Rate, Normal S1, Normal S2 Abdomen: Normal Bowel Sounds, Soft Extremities: No Clubbing, No Cyanosis, No Edema Skin: No Rashes, No Significant Lesion Neuro: Normal Speech, Cranial Nerves 3-12 NL Psych/Mental Status: Mental Status NL, Mood NL A/P-Cardiology Admission Diagnosis Hypoxemia, AE COPD Morbid obesity Right pleural effusion Elevated BNP Tobaccoism Assessment/Plan AE COPD- patient presented to ER with hypoxemia with 02 in the 60's. Currently on O2 via high flow NC. Slowly improving. Continue to monitor. Morbid obesity Elevated BNP- 2D Echo done August 2018 revealed diastolic dysfunction with EF 55-65%. Continue to diurese and continue to monitor. Small to moderate right pleural effusion, continue to diurese and continue to monitor. Tobaccoism Chronic back pain. Clinical Quality Measures DVT/VTE Risk/Contraindication: Risk Factor Score Per Nursin RFS Level Per Nursing on Admit: 4+=Very High SEAN SHAW Mar 28, 2019 11:09
[2019-03-28 12:00] VITALS: BP 100/57
--- NOTE | 2019-03-28 13:00 | Cardiology Progress Note ---
Subjective Date Seen by Provider: Mar 28, 2019 Time Seen by Provider: 12:59 Subjective/Events-last exam patient is sitting in a chair, feeling better, breathing better, asking to go home. Review of Systems General: No Chills, No Night Sweats, No Fatigue, No Malaise, No Appetite, No Other HEENT: No Head Aches, No Visual Changes, No Eye Pain, No Ear Pain, No Dysphasia, No Sinus Congestion, No Post Nasal Drip, No Sore Throat, No Other Pulmonary: Dyspnea; No Cough, No Pleuritic Chest Pain, No Other Cardiovascular: Edema; No: Chest Pain, Palpitations, Orthopnea, Paroxysmal Noc. Dyspnea, Lt Headedness, Other Focused Exam Lactate Level 03/26/19 11:55: Lactic Acid Level 2.20*H 03/26/19 14:30: Lactic Acid Level 1.08 Objective-Cardiology Exam Last Set of Vital Signs Vital Signs 03/26/19 03/28/19 03/28/19 17:01 11:03 12:00 Temp 97.0 Pulse 72 Resp 18 B/P (MAP) 100/57 (71) Pulse Ox 94 O2 Delivery NIV Bilevel O2 Flow Rate 10.00 FiO2 50 Capillary Refill : Less Than 3 Seconds I&O Intake and Output 03/28/19 00:00 Intake Total 2070 ml Output Total 3450 ml Balance -1380 ml Intake Oral 2070 ml Output Urine Total 3450 ml # Bowel Movements 1 General: Alert, Oriented X3, Cooperative HEENT: Atraumatic, PERRLA Neck: Supple, No JVD, No Thyromegaly Lungs: Other (diminishes bs bibasilarly) Heart: Regular Rate, Normal S1, Normal S2 Abdomen: Normal Bowel Sounds, Soft Extremities: No Clubbing, No Cyanosis, No Edema Skin: No Rashes, No Significant Lesion Neuro: Normal Speech, Cranial Nerves 3-12 NL Psych/Mental Status: Mental Status NL, Mood NL A/P-Cardiology Admission Diagnosis Hypoxemia, AE COPD Morbid obesity Right pleural effusion Elevated BNP Tobaccoism Assessment/Plan AE COPD- patient presented to ER with hypoxemia with 02 in the 60's. Currently on O2 via high flow NC. Slowly improving. Continue to monitor. Morbid obesity Elevated BNP- 2D Echo done August 2018 revealed diastolic dysfunction with EF 55-65%, responded well to diuretics, currently feeling better, asking to go home. Small to moderate right pleural effusion, continue to diurese and continue to monitor. Tobaccoism Chronic back pain. Okay for discharge from cardiology standpoint Clinical Quality Measures DVT/VTE Risk/Contraindication: Risk Factor Score Per Nursin RFS Level Per Nursing on Admit: 4+=Very High SAMANTHA ALLISON MD Mar 28, 2019 13:00
--- NOTE | 2019-03-28 13:51 | Progress Note-Hospitalist ---
Subjective HPI/CC On Admission Time Seen by Provider: 13:49 The patient is a 58-year-old white female who was on a scheduled visit to Dr. Michel's office yesterday. She was found to be dyspneic and hypoxic and was sent to the emergency room for further workup. She reported that she had noted this for about 2 days. She is morbidly obese and states that she walks only short distances. This appears to be less than 50 feet. Until today she had been an active smoker. There is no past history of heart attack or other part disorders. Workup in the emergency room showed an elevated BNP and a chest x- ray consistent with Focused Exam Lactate Level 03/26/19 11:55: Lactic Acid Level 2.20*H 03/26/19 14:30: Lactic Acid Level 1.08 Objective Exam Vital Signs Vital Signs Date Time Temp Pulse Resp B/P (MAP) Pulse Ox O2 Delivery O2 Flow Rate FiO2 03/28/19 12:00 97.0 72 18 100/57 (71) 94 NIV Bilevel 03/28/19 11:03 10.00 03/26/19 17:01 50 Capillary Refill : Less Than 3 Seconds General Appearance: No Apparent Distress, WD/WN, Mild Distress HEENT: PERRL/EOMI, Normal ENT Inspection Neck: Full Range of Motion, Normal Inspection, Non Tender; No Carotid Bruit Respiratory: Chest Non Tender, No Accessory Muscle Use, No Respiratory Distress, Other (diminished) Cardiovascular: Regular Rate, Rhythm, No Edema, No Gallop, No JVD, No Murmur, Normal Peripheral Pulses Gastrointestinal: Normal Bowel Sounds, Soft Rectal: Deferred Back: No CVA Tenderness Extremity: Non Tender, No Calf Tenderness Neurologic/Psychiatric: Alert, Oriented x3 Results/Procedures Lab Patient resulted labs reviewed. Clinical Quality Measures DVT/VTE Risk/Contraindication: Risk Factor Score Per Nursin RFS Level Per Nursing on Admit: 4+=Very High DALILA TROY MD Mar 28, 2019 13:51
--- NOTE | 2019-03-28 14:30 | Discharge Inst-Simple/Standard ---
Discharge Inst-Standard Patient Instructions/Follow Up Plan of Care/Instructions/FU: Medications as listed on the discharge sequence. O2 by concentrator at 6 L/m during sleeping hours. Object is to maintain an SaO2 between [address] Michel in about one week. Activity as Tolerated: Yes Discharge Diet: No Restrictions Copy Copies To 1: PRAVEENA MICHEL MD, RODNEY K MD Mar 28, 2019 14:30
[2019-03-28 14:42] VITALS: BP 100/57
--- NOTE | 2019-03-28 15:16 | NUR ---
CHANDLER ALARCON demonstrates understanding of discharge instructions and accurately returns instructions upon questioning. Copy of Post-Discharge Instructions and Medication Discharge Instructions given to PATIENT. CHANDLER ALARCON is able to manage continuing needs after discharge. Patients belongings returned to [facility]. Skin dry and intact; no breakdown noted. Patient discharged from [facility]- on at 1500. CHANDLER ALARCON left floor via WHEELCHAIR, accompanied by STAFF AND FRIENDS. FRIEND TO TAKE PATIENT HOME ON HOME OXYGEN.
--- NOTE | 2019-03-29 12:50 | Physician Query Clarification ---
PQ-Conflicting Diagnosis Admission/Discharge Admission Date: Mar 26, 2019 at 14:16 Discharge Date: Mar 28, 2019 at 15:19 The medical record reflects the following clinical scenario: History/Risk Factors: SOB, Hypoxemia, COPD, MOB Clinical Findings: BMP 1223.6, CXR - central vascular congestion compatible with CHF, EF 55-60% Treatment: IV Lasix Question: Do you agree with the impression of the CHF per Dr. Latham? If so, please specify the acuity and if diastolic, systolic or both Please document a response in Progress Note or Discharge Summary. 1. Yes 2. No 3. Other, with explanation of clinical findings 4. Clinically undetermined, no explanation for clinical findings. PHYSICIAN RESPONSE Do you agree w/Consulting Dx?: Yes Explanation of clincal finding acute on chronic left ventricular diastolic dysfunction, hypertensive heart disease Please remember a lack of response to the above will prompt a phone page by [facility]/Coding staff. In responding to this query, please exercise your independent professional judgment. The purpose of this communication is to more accurately reflect the complexity of your patients condition. The fact that a question is asked does not imply that any particular answer is desired or expected. Thank you for your timely response to this clarification. Requestors name: Alberto THIS PHYSICIAN QUERY FORM IS A PERMANENT PART OF THE MEDICAL RECORD ALBERTO WICK Mar 29, 2019 12:50 SAMANTHA ALLISON MD Mar 29, 2019 17:20
--- NOTE | 2019-03-29 15:10 | Physician Query-Final Dx ---
Final Diagnosis Give Final Diagnosis Please give Final Diagnosis TAVARES HOFFMAN Mar 29, 2019 15:10
== END 2019-03-28 15:19 | disposition home or self-care (01) | DRG 292 ==
LOC: EDUNIT# 11:39 → ER 11:40 → 4TH 14:16
PROVIDERS: ADMIT Internal Medicine; ATTEND Internal Medicine
DX: I11.0 Hypertensive heart disease with heart failure (principal); I50.33 Acute on chronic diastolic (congestive) heart failure; R09.02 Hypoxemia; J44.1 Chronic obstructive pulmonary disease with (acute) exacerbation; E66.01 Morbid (severe) obesity due to excess calories; Z68.42 Body mass index [BMI] 45.0-49.9, adult; F17.210 Nicotine dependence, cigarettes, uncomplicated; F32.9 Major depressive disorder, single episode, unspecified; M19.90 Unspecified osteoarthritis, unspecified site; M06.9 Rheumatoid arthritis, unspecified; M81.0 Age-related osteoporosis without current pathological fracture; Z87.01 Personal history of pneumonia (recurrent)
CPT/HCPCS: 36415; 36600; 51702; 71045; 80053; 82805; 83605; 83880; 85025; 87040; 93005; 93041; 93306; 94640; 94660; 94760; 96361; 96374

== ENCOUNTER → 2019-07-02 | Outpatient (CLI) | payer MEDICAID ==
[~2019-07-02] MED LIST changes: +FLUT16SP22 NS; +PANT40TA3 PO; +SOLI10TA7 PO
== END ==
LOC: LAB 10:23
PROVIDERS: ATTEND Internal Medicine Cardiovascular Disease
DX: E11.9 Type 2 diabetes mellitus without complications (principal); G47.9 Sleep disorder, unspecified; R94.31 Abnormal electrocardiogram [ECG] [EKG]; Z72.0 Tobacco use

== ENCOUNTER → 2019-07-03 | Outpatient (CLI) | payer MEDICAID ==
[2019-07-03 10:28] LABS: CHOLESTEROL 208 MG/DL (< 200); HDL CHOLESTEROL 41 MG/DL (40-60); TRIGLYCERIDES 113 MG/DL (<150); VLDL CHOLESTEROL 23 MG/DL (5-40)
[2019-07-04 14:57] LABS: ALANINE AMINOTRANSFERASE 8 U/L (0-55); ALBUMIN 3.5 GM/DL (3.2-4.5); ALKALINE PHOSPHATASE 76 U/L (40-136); BILIRUBIN,TOTAL 0.4 MG/DL (0.1-1.0); BUN/CREATININE RATIO 9; CALCIUM 9.3 MG/DL (8.5-10.1); CARBON DIOXIDE 29 MMOL/L (21-32); CHLORIDE 99 MMOL/L (98-107); CREATININE SERUM 0.76 MG/DL (0.60-1.30); GFR ESTIMATED > 60; GLUCOSE 86 MG/DL (70-105); SODIUM 140 MMOL/L (135-145)
== END ==
LOC: LAB 09:53
PROVIDERS: ATTEND Internal Medicine Cardiovascular Disease
DX: E11.9 Type 2 diabetes mellitus without complications (principal); G47.9 Sleep disorder, unspecified; R94.31 Abnormal electrocardiogram [ECG] [EKG]; Z72.0 Tobacco use
CPT/HCPCS: 36415; 80053; 80061

== ENCOUNTER 2019-09-07 12:30 | Outpatient (CLI) | payer MEDICAID ==
[2019-09-07] MEDS ORDERED: RT-ALBUTEROL SULF 2.5 MG/3 ML PRE-MIX VIAL INH ONE (12:45)
== END 2019-09-07 14:30 | disposition home or self-care (01) ==
LOC: RT 12:30
PROVIDERS: ATTEND Nurse Practitioner Family
DX: J44.9 Chronic obstructive pulmonary disease, unspecified (principal); G47.50 Parasomnia, unspecified; G47.10 Hypersomnia, unspecified
CPT/HCPCS: 94060; 94726; 94729

== ENCOUNTER → 2021-07-30 | Outpatient (CLI) | payer MEDICAID ==
[~2021-07-30] MED LIST changes: +ASPI-1238 PO; -ASPI-983 PO; -CIPR500T4 PO; +CIPR500T5 PO; +ESCI20TA39 PO; -ESCI20TA45 PO; +HYDR-34 PO; -HYDR-3816 PO; -MONT10TA24 PO; +MONT10TA32 PO; -PANT40TA3 PO; +PANT40TA52 PO; -TRAM50TA2 PO; +TRM50T PO
--- NOTE | 2021-07-30 15:49 | Diagnostic Imaging Report ---
INDICATION: Left knee pain AP and lateral views of the left knee shows severe narrowing of the medial tibiofemoral joint space with [id number] contact and erosive changes of the opposing articular surfaces. There are also osteophytes forming at the margins of the articular surface. There are also degenerative changes of the patellofemoral joint and mild degenerative changes of the lateral tibiofemoral joint compartment. IMPRESSION: Tricompartmental degenerative changes. This is severe in the medial compartment of the left knee. Dictated by: Dictated on workstation # [id number]
== END ==
LOC: RAD 13:45
PROVIDERS: ATTEND Emergency Medicine
DX: M17.12 Unilateral primary osteoarthritis, left knee (principal); R29.6 Repeated falls
CPT/HCPCS: 73560

== ENCOUNTER → 2022-09-28 | Outpatient (CLI) | payer MEDICAID ==
[~2022-09-28] MED LIST changes: +ALBU8.5H6 INH; +MONT-40 PO; -MONT10TA32 PO; -RT-ALBUINH INH
--- NOTE | 2022-09-28 17:53 | Diagnostic Imaging Report ---
EXAMINATION: Right foot 3 views HISTORY: Foot pain. COMPARISON: None available. FINDINGS: There is a heel spur. 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 No acute fracture or dislocation. IMPRESSION: 1. No fracture in the right foot. Dictated by: Dictated on workstation # [id number]
--- NOTE | 2022-09-28 18:00 | Diagnostic Imaging Report ---
EXAMINATION: Right ankle, three views. HISTORY: Ankle injury. COMPARISON: None available. FINDINGS: There is mild bimalleolar swelling. Mortise is intact. No acute fracture is seen. Heel spur is present. There is mild midfoot osteoarthritis. IMPRESSION: 1. Bimalleolar swelling without acute fracture. Dictated by: Dictated on workstation # [id number]
== END ==
LOC: RAD 13:36
PROVIDERS: ATTEND Nurse Practitioner Family
DX: M25.471 Effusion, right ankle (principal); M25.571 Pain in right ankle and joints of right foot
CPT/HCPCS: 73610; 73630